=== PATIENT | male | born 1960 | race African-American/Black ===

== ENCOUNTER 2017-05-13 13:18 | Emergency (ER) | payer MEDICARE, MEDICAID ==
[2017-05-13] MEDS ORDERED: Flurbiprofen 0.03% OPTH.SOL* 2.5 ML BTL BOTH EYES ONE (13:58)
[2017-05-13 14:55] VITALS: BP 158/88
--- NOTE | 2017-05-13 16:13 | ED ---
Kaleigh Washington Thomas, scribed for Adam Prince MD on 05/13/17 at 1332 . Throat Pain/Nasal Congestion - HPI Summary HPI Summary: The pt is a 56 y/o M accompanied by and presenting to the ED c/o bilateral eye pain s/p contact with bleach fumes today at 08:00. The pain is not worse in one eye compared to the other. The pain is aggravated by opening his eyes. The pain is alleviated by nothing. The patient has treated the pain with nothing FOOT TENDER. Pt additionally c/o photophobia, inability to open his eyes secondary to the pain. He does not wear contact lenses. PMHx: DM, HLD. - History of Current Complaint Time Seen by Provider: 05/13/17 13:26 Hx Obtained From: Patient, Family/Loan Consultant - in room Onset/Duration: Sudden Onset, Lasting Hours - today at 08:00, Worse Since - worse over course of morning Severity: Severe Associated Signs And Symptoms: Positive: Negative Cough: None - Allergies/Home Medications Allergies/Adverse Reactions: Allergies Allergy/AdvReac Type Severity Reaction Status Date / Time No Known Allergies Allergy Verified 02/29/16 11:48 PMH/Surg Hx/FS Hx/Imm Hx Previously Healthy: No Endocrine/Hematology History: Reports: Hx Diabetes Cardiovascular History: Reports: Hx Hypercholesterolemia Denies: Hx Angina, Hx Coronary Artery Disease, Hx Hypertension, Hx Myocardial Infarction, Hx Valvular Heart Disease Respiratory History: Denies: Hx Asthma, Hx Chronic Obstructive Pulmonary Disease (COPD) - Surgical History Surgery Procedure, Year, and Place: HERNIA REPAIR - Family History Known Family History: Positive: Cardiac Disease - Social History Alcohol Use: Occasionally Substance Use Type: Reports: None Hx Tobacco Use: Yes Smoking Status (MU): Light Every Day Tobacco Smoker Review of Systems Positive: Photophobia, Other - POS: bilateral eye pain s/p bleach fume exposure , inability to open eyes secondary to the pain Negative: Other - NEG: respiratory distress All Other Systems Reviewed And Are Negative: Yes Physical Exam Triage Information Reviewed: Yes Vital Signs On Initial Exam: Initial Vitals Temp Pulse Resp BP Pulse Ox 98.9 F 85 22 177/103 99 05/13/17 13:58 05/13/17 13:58 05/13/17 13:58 05/13/17 13:58 08/04/17 13:58 Vital Signs Reviewed: Yes Appearance: Positive: Well-Appearing, No Pain Distress Skin: Positive: Warm, Skin Color Reflects Adequate Perfusion, Dry Head/Face: Positive: Normal Head/Face Inspection Eyes: Positive: Other: - There is chemosis in both eyes. There is no fluorescein pickup. Corneas are clear. ENT: Positive: Normal ENT inspection Neck: Positive: Supple, Nontender Respiratory/Lung Sounds: Positive: Clear to Auscultation, Breath Sounds Present Cardiovascular: Positive: RRR Abdomen Description: Positive: Nontender, Soft Bowel Sounds: Positive: Present Musculoskeletal: Positive: Normal, Strength/ROM Intact Neurological: Positive: Normal Psychiatric: Positive: Normal, Affect/Mood Appropriate Diagnostics - Vital Signs Vital Signs Temp Pulse Resp BP Pulse Ox 05/13/17 14:53 98.7 F 80 20 158/88 05/13/17 13:58 98.9 F 85 22 177/103 99 - Laboratory Lab Statement: Any lab studies that have been ordered have been reviewed, and results considered in the medical decision making process. EENT Course/Dx - Course Course Of Treatment: Mr. Jacob was irrigated at the eye wash station. He waas noted to have scleral injection and chemosis bilaterally without flouriscein worm picker. About a half an hour after irrigation his pH was between 7 and 8. - Diagnoses Provider Diagnoses: Chemical conjunctivitis, Chemosis of conjunctiva of both eyes Discharge - Discharge Plan Condition: Stable Disposition: HOME Prescriptions: Flurbiprofen 0.03% OPHTH.JORGE* 1 drop .SEE ORDER Q4HR #1 [email or web address] Patient Education Materials: [facility] (ED) Referrals: Chris Baker MD [Medical Doctor] - If Needed Additional Instructions: Follow up with Dr. Baker, utility bagger, if your eye has not improved by tomorrow. The documentation as recorded by the jaslola KaleighCecil accurately reflects the service I personally performed and the decisions made by me, Adam Prince MD.
== END 2017-05-13 14:53 | disposition home or self-care (01) ==
LOC: ED 13:18
DX: H10.213 Acute toxic conjunctivitis, bilateral (principal); H11.423 Conjunctival edema, bilateral; E11.9 Type 2 diabetes mellitus without complications; E78.00 Pure hypercholesterolemia, unspecified; F17.210 Nicotine dependence, cigarettes, uncomplicated
CPT/HCPCS: 99282; A9270-GY

== ENCOUNTER 2018-03-11 21:59 | Emergency (ER) | payer MEDICARE, MEDICAID ==
[2018-03-11] MEDS ORDERED: HYDROcodone/ACETAMIN 5-325 MG* 1 TAB PO ONE ×2 (22:54→23:48)
[2018-03-11] MEDS ORDERED: Cephalexin CAP* 500 MG PO ONE (23:53)
--- NOTE | 2018-03-11 23:53 | ED ---
Laceration/Wound HPI - HPI Summary HPI Summary: Complains of amputation of left fifth digit distal to DIP when he slammed car trunk on his finger 45 minutes ago. Patient brought in tip of his finger. Bleeding controlled - History of Current Complaint Stated Complaint: FINGER LAC Time Seen by Provider: 03/11/18 22:50 Hx Obtained From: Patient, Family/Filling Winder Pain Intensity: 7 - Allergy/Home Medications Allergies/Adverse Reactions: Allergies Allergy/AdvReac Type Severity Reaction Status Date / Time No Known Allergies Allergy Verified 03/11/18 22:06 PMH/Surg Hx/FS Hx/Imm Hx Endocrine/Hematology History: Reports: Hx Diabetes Cardiovascular History: Reports: Hx Hypercholesterolemia Denies: Hx Angina, Hx Coronary Artery Disease, Hx Hypertension, Hx Myocardial Infarction, Hx Valvular Heart Disease Respiratory History: Denies: Hx Asthma, Hx Chronic Obstructive Pulmonary Disease (COPD) Neurological History: Reports: Hx Dementia - Surgical History Surgery Procedure, Year, and Place: HERNIA REPAIR - Immunization History Date of Tetanus Vaccine: utd Date of Influenza Vaccine: spring 2017 Infectious Disease History: No Infectious Disease History: Denies: Traveled Outside the [place] in Last 30 Days - Family History Known Family History: Positive: Cardiac Disease - Social History Alcohol Use: Occasionally Substance Use Type: Reports: None Hx Tobacco Use: Yes Smoking Status (MU): Light Every Day Tobacco Smoker Review of Systems Constitutional: Negative Eyes: Negative ENT: Negative Cardiovascular: Negative Respiratory: Negative Gastrointestinal: Negative Genitourinary: Negative Musculoskeletal: Negative Skin: Negative Neurological: Negative Psychological: Normal All Other Systems Reviewed And Are Negative: Yes Physical Exam - Summary Physical Exam Summary: Worse with rotation of distal tip of left fifth digit distal to DIP, involving full nail. Minor bony protrusion from remainder of finger. Fifth Finger otherwise flexes and extends. Triage Information Reviewed: Yes Vital Signs On Initial Exam: Initial Vitals Temp Pulse Resp BP Pulse Ox 97.8 F 79 20 174/97 98 03/11/18 22:02 03/11/18 22:02 03/11/18 22:02 03/11/18 22:02 03/11/18 22:02 Vital Signs Reviewed: Yes Appearance: Positive: Well-Appearing Skin: Positive: Warm Head/Face: Positive: Normal Head/Face Inspection Eyes: Positive: Normal Neck: Positive: Supple Respiratory/Lung Sounds: Positive: Clear to Auscultation Cardiovascular: Positive: Normal Abdomen Description: Positive: Nontender Musculoskeletal: Positive: Normal Neurological: Positive: Normal Psychiatric: Positive: Normal AVPU Assessment: Alert - [place] Coma Scale Best Eye Response: 4 - Spontaneous Best Motor Response: 6 - Obeys Commands Best Verbal Response: 5 - Oriented Coma Scale Total: 15 Diagnostics - Vital Signs Vital Signs Temp Pulse Resp BP Pulse Ox 03/11/18 22:02 97.8 F 79 20 174/97 98 - Laboratory Lab Statement: Any lab studies that have been ordered have been reviewed, and results considered in the medical decision making process. - Radiology finger Xray Interpretation: Positive (See Comments) - Amputation of distal tip of distal phalanx of the left fifth digit Radiology Interpretation Completed By: ED Physician Laceration Repair Course/Dx - Course Course Of Treatment: Complains of amputation of left fifth digit distal to DIP when he slammed car trunk on his finger. Patient brought in tip of his finger. Discussed patient with Dr. Greer protection engineer for Ortho, who dressed patient's finger, and recommended Keflex by mouth, and follow-up in clinic Tuesday or Tuesday. Patient agreeable with plan. - Clinical Impression Provider Diagnoses: Fingertip amputation - Physician Notifications Discussed Care Of Patient With: Jagdeep Okeefe Discharge - Sign-Out/Discharge Documenting (check all that apply): Discharge/Admit/Transfer - Discharge Plan Condition: Stable Disposition: HOME Prescriptions: HYDROcodone/ACETAMIN 5-325 MG* [Tracy 5-325 TAB*] 1 tab PO Q6H PRN 4 Days #16 tab MDD 4-6 tabs PRN Reason: Pain Sulfamethox/Trimethoprim DS* [Bactrim DS 800/160 TAB*] 1 tab PO BID 10 Days #20 tab Patient Education Materials: Finger Amputation (ED) Referrals: Mary Mendez MD [Primary Care Provider] - Jagdeep Okeefe MD [Medical Doctor] - Additional Instructions: Keep wound clean and dry. Take antibiotics as directed. Follow-up with orthopedics Dr. Okeefe on Tuesday. Return to the ED for any new or worsening symptoms - Billing Disposition and Condition Condition: STABLE Disposition: HOME
[2018-03-11] MEDS ORDERED: Sulfamethox/Trimethoprim DS 800/160* TAB PO ONE (23:55)
[2018-03-12 00:59] VITALS: BP 188/99
--- NOTE | 2018-03-12 08:46 | RAD ---
Indication: Amputation of finger tip. Shut finger in trunk of car. Comparison: No relevant prior exams available on the [facility] PACS for comparison. Technique: AP, lateral, and oblique views LEFT fifth finger. REPORT AND IMPRESSION: Amputation of the tip of the fifth finger including the majority of the tuft of the distal phalanx. Overlying soft tissue contour abnormality with soft tissue gas and edema.
--- NOTE | 2018-03-12 09:11 | CONSULT ---
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 The pain is located at the left small finger and is constant moderate, sharp. Pain worse with hip ROM and lessened when rested. Review of Systems: Negative for fever, recent visual changes, difficulty swallowing, chest pain, shortness of breath, abdominal pain, hematuria, easy bruising, diffuse weakness or lack of coordination, and diffuse rash. 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 Smokes a few cigarettes per day FH: diabetes Physical Examination: Constitutional: Temp Pulse Resp BP Pulse Ox 97.9 F 66 18 188/99 99 03/12/18 00:15 03/12/18 00:15 03/12/18 00:15 03/12/18 00:15 03/12/18 00:15 General appearance is healthy and non-septic in no acute distress. Cardiovascular: Pulse examination demonstrates positive pedal pulses with brisk capillary refill. There are no varicosities. Lung sounds clear bilaterally. Heart with a regular rate and rhythm. Abdomen: Soft and nontender Lymphatic: No lymphadenopathy appreciated. Skin: Bilateral upper and lower extremity examination demonstrates no ulcerative lesions. Psychiatric / Neurological: Appropriate affect. Alert and oriented to person, place and time. There is no significant abnormality in coordination appreciated. Normoreflexive deep tendon reflex of the affected extremity. Musculoskeletal: Bilateral upper extremities and contralateral lower extremity show full range of motion with no evidence of instability and no tenderness with palpation and 5 /5 strength. There is no gross deformity. LUE: Left small finger tip avulsion with loss of distal tip and nail. No active bleeding. No obvious wound contamination. Distal phalanx exposed. Able to flex and extend fingers. No wrist pain with ROM No erythema Mild swelling of small finger SILT R/M/U palpable radial pulse Imaging: X-rays were obtained, and independently interpreted and show a distal phalanx distal fracture Impression and Plan: Left small finger fingertip avulsion amputation and distal phalanx fracture. The wound was thoroughly irrigated by me in the emergency room. I then dressed with Xeroform and a bulky dry sterile dressing. He will followup early this week with one of our hand specialists to schedule a revision amputation. He will be on antibiotics in the meantime. Concerning symptoms reviewed that should prompt a return to the emergency room prior to his evaluation with a hand specialist. He will remain nonweightbearing, rest, elevate the left upper extremity. All questions were answered. Jagdeep Okeefe MD
== END 2018-03-12 00:15 | disposition home or self-care (01) ==
LOC: ED 21:59
DX: S68.127A Partial traumatic metacarpophalangeal amputation of left little finger, initial encounter (principal); W23.0XXA Caught, crushed, jammed, or pinched between moving objects, initial encounter; Y92.9 Unspecified place or not applicable; F17.210 Nicotine dependence, cigarettes, uncomplicated
CPT/HCPCS: 73140; 99282; A9270-GY

== ENCOUNTER 2018-03-14 09:13 | Day surgery (SDC) | payer MEDICARE, MEDICAID ==
--- NOTE | 2018-03-13 14:19 | HP ---
PREOPERATIVE HISTORY AND PHYSICAL EXAM: DATE OF SURGERY/ADMISSION: 03/14/18 [facility] ATTENDING SURGEON: Deepthi Dick MD * (DICTATED BY ERICK MAYERS) PROCEDURE: Left small finger revision amputation. CHIEF COMPLAINT: Partial amputation, left small finger. HISTORY OF PRESENT ILLNESS: This is a 57-year-old male who sustained injury to his left pinky finger on 03/11/18, when he accidentally slammed the finger in a car trunk. He suffered a partial amputation at the level of the fingernail. He was seen at the emergency room and Dr. Okeefe did a consult. He has been referred to Dr. Dick for followup evaluation and treatment considerations after exam. Dr. Dick is recommending surgical intervention in the form of a left small finger revision amputation and the patient has consented to proceed. He is on oxycodone regularly for chronic back pain and for his left pinky he was prescribed Bactrim and Keflex. PAST MEDICAL HISTORY: 1. Arthritis. 2. Diabetes. 3. Fibromyalgia/neuropathy. 4. Chronic back pain. 5. Hypertension. 6. GERD. PAST SURGICAL HISTORY: 1. Right hip resurfacing in 2009. 2. Hernia repair. CURRENT MEDICATIONS: 1. Gabapentin 300 mg 4 tablets t.i.d. 2. Glipizide 10 mg daily. 3. Humulin R 100 units/mL 15-25 units t.i.d. 4. Ibuprofen 600 mg 3 times a day p.r.n. 5. Levemir FlexTouch 100 units/mL 35 units once daily. 6. Omeprazole 20 mg twice daily. 7. Oxycodone HCl 10 mg 2 tabs t.i.d. p.r.n. 8. Oxycodone HCl 5 mg 1 tab t.i.d. p.r.n. 9. The patient is also on a blood pressure medication, but he could not remember the name of it. ALLERGIES: No known drug allergies. FAMILY MEDICAL HISTORY: Diabetes, heart disease, rheumatoid arthritis. SOCIAL HISTORY: The patient is disabled. He is a current smoker, he smokes about 5 cigarettes per day and has done so for 40 years. He denies recreational drug use. He does drink alcohol on occasion. REVIEW OF SYSTEMS: General: Negative for fevers, chills, unexplained weight loss or gain. No known anesthesia problems. HEENT: Negative for headache, lightheadedness, syncopal episodes, visual changes. Integumentary: Negative for abrasions, rashes. Cardiothoracic: Negative for hypertension, chest pain, palpitations, or edema. Respiratory: Negative for shortness of breath with exertion, chronic cough, or wheezing. GI: Positive for GERD. Negative for nausea, vomiting, diarrhea, or constipation. : Negative for nocturia, urinary frequency, urgency, history of UTIs, or kidney problems. Musculoskeletal: Positive for current complaint. Positive for chronic back pain. Neurological: Negative for paresthesias, numbness, history of seizure, stroke, or poor balance. Endocrine: Positive for diabetes. Negative for thyroid issues. Hematologic: Negative for easy bruising, anemia, bleeding disorders, or history of DVT. Infectious Disease: Negative for history of MRSA , hepatitis C, or HIV. PHYSICAL EXAMINATION GENERAL: Well-developed, well-nourished 57-year-old male in no acute distress. VITAL SIGNS: Height 5 feet 7 inches, weight 239 pounds. Pulse rate 80, blood pressure 128/82. HEENT: Normocephalic, atraumatic. Pupils are equal, round, and reactive to light and accommodation. Extraocular movements are intact. NECK: Supple. No palpable lymph nodes. Throat is clear. PULMONARY: Lungs are clear to auscultation bilaterally. No wheezes, rales, or rhonchi. CARDIOVASCULAR: Regular rate and rhythm. S1 and S2. No murmurs, rubs, or gallops. No edema. ABDOMEN: Positive bowel sounds. Soft, nontender. NEUROLOGIC: Alert and oriented x3. Cranial nerves II through XII are intact. Sensation is intact to light touch. MUSCULOSKELETAL: On exam of his left pinky finger, he has a partial amputation of the small finger at the level of the fingernail. It is completely open and clean. There is no sign of infection, no drainage or erythema. He has active flexion and extension at the DIP joint. IMAGING STUDIES: X-rays of the left little finger show an amputation of the tip of the finger including the majority of the tuft of the distal phalanx. IMPRESSION: Partial amputation, left small finger. PLAN: The patient is scheduled to undergo a left small finger revision amputation with Dr. Dick on 03/14/18. He will return to the office 10 days postop for followup and suture removal. He has pain medications as prescribed by his primary care doctor that he will plan on using for postoperative pain management. ERICK MAYERS [id number]/[facility] #: [id number] RUI
[~2018-03-14 09:13] MED LIST: Buffered Lidocaine 0.9% SYRIN* 5 ML/SYR SYRINGE INTRADERM ONE; Lidocaine 1% INJ* 10 MG/ML 30 ML SDV ONE
[2018-03-14] MEDS ORDERED: Famotidine IV* 10 MG/ML 2 ML (20 mg) ONE (09:23)
[2018-03-14] MEDS ORDERED: Insulin REGULAR(*) 1 UNITS UNIT SUBCUT ONE (09:52)
[2018-03-14] MEDS ORDERED: Insulin LISPRO* 1 UNITS UNIT SUBCUT ONE (09:54)
[2018-03-14] MEDS: Famotidine IV* 10 MG/ML 2 ML (20 mg) IV ONE ×2 (10:01→10:28)
[2018-03-14] MEDS ORDERED: fentaNYL* 50 MCG/ML 2 ML VIAL (100 MCG VIAL) ONE (10:11)
[2018-03-14] MEDS ORDERED: Midazolam* 1 MG/ML 5 ML VIAL (5 MG) ONE (10:11)
[2018-03-14] MEDS ORDERED: oxyCODONE TAB* 5 MG TAB PO PRN (10:56)
[2018-03-14] MEDS ORDERED: Acetaminophen TAB* 325 MG PO PRN (10:56)
[2018-03-14] MEDS ORDERED: DiMENhydriNATE IV* 50 MG/ML VIAL IV PUSH PRN (10:56)
[2018-03-14] MEDS ORDERED: Naloxone* 0.4 MG/ML 1 ML VIAL IV PRN (10:56)
[2018-03-14] MEDS ORDERED: Ketorolac INJ* 30 MG/ML 1 ML VIAL ONE (11:05)
[2018-03-14] MEDS ORDERED: Ondansetron INJ* 2 MG/ML VIAL ONE ×2 (11:05)
[2018-03-14] MEDS ORDERED: Propofol* 10 MG/ML 20 ML BTL IV PUSH ONE (11:05)
[2018-03-14 11:56] VITALS: BP 138/75
--- NOTE | 2018-03-14 22:43 | OP ---
DATE OF OPERATION: 03/14/18 [facility] DATE OF : 60 SURGEON: Deepthi Dick MD TECHNICAL SALES SUPPORT SPECIALIST: ERICK Garcia ANESTHESIA: Local MAC. PRE-OP DIAGNOSIS: Partial amputation of the left small finger. POST-OP DIAGNOSIS: Partial amputation of the left small finger. OPERATIVE PROCEDURE: Revision amputation of the left small finger with a V-Y advancement flap. ESTIMATED BLOOD LOSS: Zero. TOURNIQUET TIME: About 20 minutes. INDICATIONS FOR PROCEDURE: Juan is a 57-year-old male who injured his left small finger when he closed it in a trunk door of his car. He has a partially amputation of the tip of the finger. He presents for revision amputation. There is exposed bone. DESCRIPTION OF PROCEDURE: The patient was brought to the operating room, was given a sedation anesthetic and a digital block with 10 cc of 1% plain lidocaine. The skin of his left hand and forearm was prepped and draped in the usual sterile fashion. The hand and forearm were exsanguinated and the tourniquet elevated to 250 mmHg. The wound was cleaned and then the exposed bone was debrided just slightly. There was a significant amount of nail bed remaining, so this was preserved. A V-shaped incision was made on the palmar aspect of the finger and the skin was rearranged to completely cover the wound and closed in Y-shaped fashion. The skin flap was sutured with 4-0 nylon suture. The wound was dressed with Xeroform, 4x4, Webril, and Coban. The patient tolerated the procedure well, was brought to the recovery room in good condition. [id number]/[facility] #: [id number] [facility]
== END 2018-03-14 12:10 | disposition home or self-care (01) ==
LOC: OREAST 09:13
PROVIDERS: ATTEND Orthopaedic Surgery
DX: S61.317A Laceration without foreign body of left little finger with damage to nail, initial encounter (principal); E11.9 Type 2 diabetes mellitus without complications; Z79.4 Long term (current) use of insulin; I10 Essential (primary) hypertension; K21.9 Gastro-esophageal reflux disease without esophagitis; M19.90 Unspecified osteoarthritis, unspecified site; M79.7 Fibromyalgia; F17.210 Nicotine dependence, cigarettes, uncomplicated; E78.5 Hyperlipidemia, unspecified; W23.0XXA Caught, crushed, jammed, or pinched between moving objects, initial encounter; Y92.9 Unspecified place or not applicable
CPT/HCPCS: J1885; J2250; J2405; J2704; J3010

== ENCOUNTER 2018-09-13 21:33 | Emergency (ER) | payer MEDICARE, MEDICAID ==
[2018-09-13] MEDS ORDERED: NS 0.9% 1000 ML* 1,000 ML IV ONE ×2 (21:59→22:44)
[2018-09-13] MEDS ORDERED: Labetalol IV* 5 MG/ML 20 ML VIAL IV PUSH ONE (22:00)
--- NOTE | 2018-09-13 22:00 | ED ---
Substance Abuse/Use - HPI Summary HPI Summary: This patient is a 57 year old M brought in by ambulance to [facility] with a chief complaint of unresponsiveness that occurred prior to arrival and resolved with one dose of Narcan. The patient rates the pain 0/10 in severity. Symptoms aggravated by nothing. Symptoms alleviated by Narcan. Patient was found unresponsive on scene, patient admits to snorting heroin today. Patient says he does not do heroin, but took it tonight as an experiment. - History Of Current Complaint Chief Complaint: EDOverdose Stated Complaint: OVERDOSE Time Seen by Provider: 09/13/18 21:50 Hx Obtained From: Patient Ingestion History: Type/Name Of Drug - Heroin Overdose Characteristics: Inhalation Timing Of Abuse: Binge Use Severity Initially: Mild Severity Currently: Mild Aggravating Factor(s): Nothing Alleviating Factor(s): Other - Narcan - Allergies/Home Medications Allergies/Adverse Reactions: Allergies Allergy/AdvReac Type Severity Reaction Status Date / Time No Known Allergies Allergy Verified 03/14/18 09:40 PMH/Surg Hx/FS Hx/Imm Hx Previously Healthy: No Endocrine/Hematology History: Reports: Hx Diabetes - USES INSULIN AND ORAL MEDICATION FOR Cardiovascular History: Reports: Hx Hypercholesterolemia, Hx Hypertension - ON MEDICATION FOR Denies: Hx Angina, Hx Coronary Artery Disease, Hx Myocardial Infarction, Hx Pacemaker/ICD, Hx Valvular Heart Disease Respiratory History: Denies: Hx Asthma, Hx Chronic Obstructive Pulmonary Disease (COPD) GI History: Reports: Hx Gastroesophageal Reflux Disease - ON MEDICATION FOR Musculoskeletal History: Reports: Hx Arthritis - "ALL OVER" Sensory History: Reports: Hx Contacts or Glasses - GLASSES Denies: Hx Hearing Aid Opthamlomology History: Reports: Hx Contacts or Glasses - GLASSES Neurological History: Reports: Hx Dementia - Surgical History Surgery Procedure, Year, and Place: HERNIA REPAIR. RIGHT TOTAL REPLACEMENT-7 YEARS AGO. finger Hx Anesthesia Reactions: No - Immunization History Date of Tetanus Vaccine: utd Date of Influenza Vaccine: spring 2017 Infectious Disease History: No Infectious Disease History: Denies: Traveled Outside the [place] in Last 30 Days - Family History Known Family History: Positive: Cardiac Disease - Social History Occupation: Disabled Lives: With Family Alcohol Use: Rare Hx Substance Use: Yes Substance Use Type: Reports: Heroin Hx Tobacco Use: Yes Smoking Status (MU): Current Every Day Smoker Amount Used/How Often: UP TO 6 CIGARETTES PER DAY-X 30 YEARS Have You Smoked in the Last Year: Yes Review of Systems Negative: Fever Neurological: Other - Positive unresponsiveness All Other Systems Reviewed And Are Negative: Yes Physical Exam - Summary Physical Exam Summary: VITAL SIGNS: Reviewed. GENERAL: Patient is a well-developed and nourished male who is lying comfortable in the stretcher. Patient is not in any acute respiratory distress. HEAD AND FACE: No signs of trauma. No ecchymosis, hematomas or skull depressions. No sinus tenderness. EYES: PERRLA, EOMI x 2, No injected conjunctiva, no nystagmus. EARS: Hearing grossly intact. Ear canals and tympanic membranes are within normal limits. MOUTH: Oropharynx within normal limits. NECK: Supple, trachea is midline, no adenopathy, no JVD, no carotid bruit, no c- spine tenderness, neck with full ROM. CHEST: Symmetric, no tenderness at palpation LUNGS: Clear to auscultation bilaterally. No wheezing or crackles. CVS: Regular rate and rhythm, S1 and S2 present, no murmurs or gallops appreciated. ABDOMEN: Soft, non-tender. No signs of distention. No rebound no guarding, and no masses palpated. Bowel sounds are normal. EXTREMITIES: FROM in all major joints, no edema, no cyanosis or clubbing. NEURO: Alert and oriented x 3. No acute neurological deficits. Speech is normal and follows commands. SKIN: Dry and warm PSYCH: Somewhat anxious Triage Information Reviewed: Yes Vital Signs On Initial Exam: Initial Vitals Temp Pulse Resp BP Pulse Ox 98.6 F 100 20 192/102 98 09/13/18 21:39 09/13/18 21:39 09/13/18 21:39 09/13/18 21:39 09/13/18 21:39 Vital Signs Reviewed: Yes Diagnostics - Vital Signs Vital Signs Temp Pulse Resp BP Pulse Ox 09/13/18 21:39 98.6 F 100 20 192/102 98 - Laboratory Result Diagrams: 09/13/18 22:06 09/13/18 22:06 Lab Statement: Any lab studies that have been ordered have been reviewed, and results considered in the medical decision making process. - Radiology Chest XR Radiology Interpretation Completed By: ED Physician Summary of Radiographic Findings: Chest XR reveals, per ED physician, no acute process. - EKG 2147 Cardiac Rate: NL EKG Rhythm: Sinus Rhythm - [address] Segment: Non-Specific Summary of EKG Findings: An EKG taken at 2146 reveals sinus rhythm at 90 BPM with 1st degree AV block, normal axis, and nonspecific T wave changes. Course/Dx - Course Course Of Treatment: This patient is a 57 year old M brought in by ambulance to [facility] with a chief complaint of unresponsiveness that occurred prior to arrival and resolved with one dose of Narcan. Patient was found unresponsive on scene, patient admits to snorting heroin today. Patient says he does not do heroin, but took it tonight as an experiment. Physical Exam Findings: Somewhat anxious. Patient had a nasal airway, which I did remove. An EKG taken at 2146 reveals sinus rhythm at 90 BPM with 1st degree AV block, normal axis, and nonspecific T wave changes. Bloodwork and UA obtained. Patient did have elevated lactic acid, which improved with hydration. Blood sugar is down. In the ED course the patient was given Insulin, fluids, Ativan, and Trandate. Patient will be discharged with follow up from PCP. The patient is agreeable with this plan. - Diagnoses Provider Diagnoses: Substance abuse, Hyperglycemia Discharge - Sign-Out/Discharge Documenting (check all that apply): Patient Departure - Discharge home - Discharge Plan Condition: Stable Disposition: HOME Patient Education Materials: Diabetic Hyperglycemia (ED) Referrals: Mary Mendez MD [Primary Care Provider] - 2 Days Additional Instructions: RETURN TO THE EMERGENCY DEPARTMENT FOR NEW OR WORSENING SYMPTOMS - Billing Disposition and Condition Condition: STABLE Disposition: Home - Attestation Statements Document Initiated by Scribe: Yes Documenting Scribe: Remedios Daniel Provider For Whom Camelia is Documenting (Include Credential): Dr. Concepcion Riggs MD Scribe Attestation: IRemedios, scribed for Dr. Concepcion Riggs MD on 09/14/18 at 0641. Scribe Documentation Reviewed: Yes Provider Attestation: The documentation as recorded by the Remedios del valle accurately reflects the service I personally performed and the decisions made by me, Dr. Concepcion Riggs MD Status of Scribe Document: Viewed
[2018-09-13] MEDS ORDERED: LORazepam INJ* 2 MG/ML 1 ML VIAL IV PUSH ONE (22:01)
[2018-09-13] MEDS ORDERED: Insulin REGULAR(*) 1 UNITS UNIT IV PUSH ONE (22:03)
[2018-09-13 22:23] LABS: ABS Basophils 0 10^3/ul (0-0.2); ABS Eosinophils 0.2 10^3/ul (0-0.6); ABS Lymphocytes 1.2 10^3/ul (1.0-4.8); ABS Monocytes 0.8 10^3/ul (0-0.8); ABS Neutrophils 8.5 10^3/ul (1.5-7.7); ABS Nucleated RBC 0 10^3/ul; Eosinophil % 1.6 %; Hematocrit 41 % (42-52); Hemoglobin 13.7 g/dl (14.0-18.0); Lymphocyte % 10.8 %; Mean Corpuscular HGB Conc 34 g/dl (31-36); Mean Corpuscular Hemoglobin 27 pg (27-31); Mean Corpuscular Volume 80 fL (80-94); Mean Platelet Volume 8.1 fL (7.4-10.4); Nucleated Red Blood Cells % 0; Platelet Count 210 10^3/ul (150-450); Red Blood Count 5.12 10^6/ul (4.00-5.40); Red Cell Distribution Width 15 % (10.5-15); White Blood Count 10.6 10^3/ul (3.5-10.8)
[2018-09-13 22:31] LABS: INR 0.77 (0.77-1.02)
[2018-09-13 22:41] LABS: EGFR Non-African American 61.8 (>60)
[2018-09-14 03:12] LABS: Urine Appearance Clear; Urine Blood 1+ (Negative); Urine Color Yellow; Urine Ketones Negative (Negative); Urine Protein 2+(100 mg/dL) (Negative); Urine Red Blood Cell 2+(6-10/hpf) (Absent); Urine Specific Gravity 1.022 (1.010-1.030); Urine Urobilinogen Negative (Negative); Urine White Blood Cell Trace(0-5/hpf) (Absent)
[2018-09-14] MEDS ORDERED: Insulin LISPRO* 1 UNITS UNIT SUBCUT ONE (03:52)
[2018-09-14] MEDS ORDERED: Insulin REGULAR(*) 1 UNITS UNIT IV PUSH ONE (03:53)
[2018-09-14 04:46] VITALS: BP 149/87
== END 2018-09-14 04:45 | disposition home or self-care (01) ==
LOC: ED 21:33
DX: F19.10 Other psychoactive substance abuse, uncomplicated (principal); E13.65 Other specified diabetes mellitus with hyperglycemia; Z79.4 Long term (current) use of insulin; F17.210 Nicotine dependence, cigarettes, uncomplicated
CPT/HCPCS: 36415; 71045; 80053; 80307; 81003; 81015; 82550; 82803; 83605; 83735; 84484; 85025; 85610; 85730; 87086; 93005; 96361; 96372; 96374; 96375; 99285; J2060

== ENCOUNTER → 2018-12-24 14:36 | Emergency (ER) | payer MEDICARE, MEDICAID ==
[~2018-12-24 14:36] MED LIST changes: +Acetaminophen TAB* 325 MG PO ONE; +Albuterol/Ipratropium NEB.SOL* Albuterol 2.5 MG/Ipratropium 0.5 MG 3 ML INH ONE; -Buffered Lidocaine 0.9% SYRIN* 5 ML/SYR SYRINGE INTRADERM ONE; +Furosemide IV* 10 MG/ML 2 ML VIAL (20 MG) IV ONE; -Lidocaine 1% INJ* 10 MG/ML 30 ML SDV ONE; +NS 0.9% 1000 ML** 1,000 ML IV ONE; +hydrALAZINE IV* 20 MG/ML VIAL IV SLOW PU ONE; +methylPREDNISolone 125 MG* 2 ML VIAL IV ONE
--- NOTE | 2018-12-24 14:50 | ED ---
Shortness of Breath - HPI Summary HPI Summary: Patient is a 58-year-old male presenting to the ED with a three-day worsening history of SOB. He denies history of COPD or asthma. He takes no medications at home. He has been prescribed an albuterol inhaler in the past when he has had some SOB, however he has not used this at home. He arrives by EMS. He denies recent illness or sick contacts. He denies any fevers, sweats, chills. He endorses a cough with sputum production. - History of Current Complaint Time Seen by Provider: 12/24/18 14:38 Hx Obtained From: Patient Onset/Duration: Sudden Onset Timing: Constant Current Severity: None Dyspnea At: Rest Alleviating Factors: Bronchodilators Associated Signs & Symptoms: Cough (Productive) - Risk Factors Pulmonary Embolism: Negative Cardiac: Negative Pseudomonas: Negative Tuberculosis: Negative - Allergy/Home Medications Allergies/Adverse Reactions: Allergies Allergy/AdvReac Type Severity Reaction Status Date / Time No Known Allergies Allergy Verified 12/24/18 14:55 Home Medications: Home Medications Gabapentin 600 mg PO TID 12/24/18 [History Confirmed 12/24/18] Pioglitazone TAB* [Actos TAB*] 30 mg PO DAILY 12/24/18 [History Confirmed ] PMH/Surg Hx/FS Hx/Imm Hx Previously Healthy: Yes Endocrine/Hematology History: Reports: Hx Diabetes - USES INSULIN AND ORAL MEDICATION FOR Cardiovascular History: Reports: Hx Hypercholesterolemia, Hx Hypertension - ON MEDICATION FOR Denies: Hx Angina, Hx Coronary Artery Disease, Hx Myocardial Infarction, Hx Pacemaker/ICD, Hx Valvular Heart Disease Respiratory History: Denies: Hx Asthma, Hx Chronic Obstructive Pulmonary Disease (COPD) GI History: Reports: Hx Gastroesophageal Reflux Disease - ON MEDICATION FOR Musculoskeletal History: Reports: Hx Arthritis - "ALL OVER" Sensory History: Reports: Hx Contacts or Glasses - GLASSES Denies: Hx Hearing Aid Opthamlomology History: Reports: Hx Contacts or Glasses - GLASSES Neurological History: Reports: Hx Dementia - Surgical History Surgery Procedure, Year, and Place: HERNIA REPAIR. RIGHT TOTAL REPLACEMENT-7 YEARS AGO. finger Hx Anesthesia Reactions: No - Immunization History Date of Tetanus Vaccine: utd Date of Influenza Vaccine: spring 2017 Hx Pertussis Vaccination: No Immunizations Up to Date: Yes Infectious Disease History: Denies: Traveled Outside the [place] in Last 30 Days - Family History Known Family History: Positive: Cardiac Disease - Social History Occupation: Unemployed Lives: With Family Alcohol Use: Rare Hx Substance Use: Yes Substance Use Type: Reports: Heroin Hx Tobacco Use: Yes Smoking Status (MU): Current Every Day Smoker Amount Used/How Often: UP TO 6 CIGARETTES PER DAY-X 30 YEARS Have You Smoked in the Last Year: Yes Review of Systems Constitutional: Negative Negative: Fever, Chills, Fatigue, Skin Diaphoresis Negative: Dental Pain Negative: Palpitations, Chest Pain Positive: Shortness Of Breath, Cough Negative: Abdominal Pain, Vomiting, Diarrhea, Nausea Negative: Rash, Bruising Neurological: Negative All Other Systems Reviewed And Are Negative: Yes Physical Exam Triage Information Reviewed: Yes Vital Signs Reviewed: Yes Appearance: Positive: Well-Appearing, Well-Nourished Skin: Positive: Warm, Skin Color Reflects Adequate Perfusion Head/Face: Positive: Normal Head/Face Inspection Eyes: Positive: EOMI, TIFFANI, Conjunctiva Clear Neck: Positive: Supple, No Lymphadenopathy Respiratory/Lung Sounds: Positive: Decreased Breath Sounds Cardiovascular: Positive: RRR, Pulses are Symmetrical in both Upper and Lower Extremities, Tachycardia, Leg Edema Left - 1+, Leg Edema Right - 1+ Musculoskeletal: Positive: Normal, Strength/ROM Intact Neurological: Positive: Speech Normal Psychiatric: Positive: Normal, Affect/Mood Appropriate AVPU Assessment: Alert Diagnostics - Laboratory Result Diagrams: 12/24/18 15:00 12/24/18 15:00 Lab Statement: Any lab studies that have been ordered have been reviewed, and results considered in the medical decision making process. Course/Dx - Course Course Of Treatment: On arrival into the ED, patient is noted to be 100% on a nonrebreather. This was taken off and he remains at 98%. He is given hydralazine 5 mg IV for his high blood pressure noted to be 205/100. Methylprednisolone 125, 1 DuoNeb, Tylenol 650 mg and normal saline also given on arrival. He is feeling improved and his BP decreases to 149/73. He ambulates well to the restroom. BNP returns at 160 so we held the rest of any fluids ordered. On physical examination, patient has bilateral crackles without rales or wheezing. He continues to have bilateral crackles and Lasix is given. This improved his sxs. 1+ pitting edema noted. Glucose is 257 he continues his DM medications. Trop 0.02. He is given RX 3 days Lasix and albuterol inhaler. He is given prednisone for SOB. I believe he may have COPD with overlying mild CHF. He will have a close f/u with his PCP this week for further evaluation/resolution of these diagnoses. Patient is stable and OK for discharge. All questions answered appropriately. - Diagnoses Differential Diagnosis/HQI/PQRI: Positive: Bronchitis, CHF, Pulmonary Edema Provider Diagnoses: COPD (chronic obstructive pulmonary disease), Pulmonary edema - Critical Care Time Critical Care Time: 30-74 min Discharge - Sign-Out/Discharge Documenting (check all that apply): Patient Departure Patient Received Moderate/Deep Sedation with Procedure: No - Discharge Plan Condition: Stable Disposition: HOME Prescriptions: Albuterol HFA INHALER* [Ventolin HFA Inhaler*] 1 puff INH Q4H PRN #1 mdi PRN Reason: Shortness Of Breath Furosemide TAB* [Lasix TAB*] 20 mg PO DAILY #3 tab predniSONE TAB* [Deltasone TAB*] 50 mg PO DAILY #5 tab MDD 1 Patient Education Materials: Pulmonary Edema (ED) Referrals: Mary Mendez MD [Primary Care Provider] - Additional Instructions: Please follow up with your PCP in 2-3 days Prednisone once daily x 5 days - Billing Disposition and Condition Condition: STABLE Disposition: Home
[2018-12-24 15:08] LABS: ABS Basophils 0.1 10^3/ul (0-0.2); ABS Eosinophils 0.3 10^3/ul (0-0.6); ABS Lymphocytes 1.6 10^3/ul (1.0-4.8); ABS Monocytes 0.5 10^3/ul (0-0.8); ABS Neutrophils 3.8 10^3/ul (1.5-7.7); ABS Nucleated RBC 0 10^3/ul; Eosinophil % 4.4 %; Hematocrit 40 % (36-46); Hemoglobin 13.2 g/dL (14.0-18.0); Lymphocyte % 24.9 %; Mean Corpuscular HGB Conc 33 g/dL (31-36); Mean Corpuscular Hemoglobin 26 pg (27-31); Mean Corpuscular Volume 80 fL (80-94); Mean Platelet Volume 7.7 fL (7.4-10.4); Nucleated Red Blood Cells % 0; Platelet Count 220 10^3/uL (150-450); Red Cell Distribution Width 15 % (10.5-15); White Blood Count 6.2 10^3/uL (3.5-10.8)
[2018-12-24 15:26] LABS: Albumin 3.3 g/dL (3.2-5.2); Albumin/Globulin Ratio 1.1 (1-3); BUN/Creatinine Ratio 11.1 (8-20); C Reactive Protein 12.63 mg/L (<8.01); Calcium 8.1 mg/dL (8.6-10.3); EGFR Non-African American 70.2 (>60); Globulin 2.9 g/dL (2-4); Total Bilirubin 0.6 mg/dL (0.2-1.0); Total Protein 6.2 g/dL (6.4-8.9)
[2018-12-24 15:27] LABS: Troponin I 0.02 ng/mL (<0.04)
[2018-12-24 15:43] LABS: Potassium 4.1 mmol/L (3.5-5.0)
[2018-12-24 18:12] LABS: Influenza A Molecular NEGATIVE (Negative); Influenza B Molecular NEGATIVE (Negative)
[2018-12-24 19:21] VITALS: BP 180/87
== END | disposition home or self-care (01) ==
LOC: ED 14:36
DX: J44.9 Chronic obstructive pulmonary disease, unspecified (principal); J81.1 Chronic pulmonary edema; R05 Cough; I10 Essential (primary) hypertension; R06.02 Shortness of breath; E11.9 Type 2 diabetes mellitus without complications; Z79.84 Long term (current) use of oral hypoglycemic drugs; Z79.4 Long term (current) use of insulin; F17.210 Nicotine dependence, cigarettes, uncomplicated
CPT/HCPCS: 36415; 71046; 80053; 83605; 83880; 84484; 85025; 86140; 93005; 96374; 96375; 99284; A9270-GY; J0360; J1940; J2930

== ENCOUNTER → 2019-05-03 10:03 | Day surgery (SDC) | payer MEDICARE, MEDICAID ==
[~2019-05-03 10:03] MED LIST changes: -Acetaminophen TAB* 325 MG PO ONE; -Albuterol/Ipratropium NEB.SOL* Albuterol 2.5 MG/Ipratropium 0.5 MG 3 ML INH ONE; +Buffered Lidocaine 1% SYRIN* 1 ML/SYRINGE INTRADERM ONE; +Famotidine IV* 10 MG/ML 2 ML (20 mg) IV ONE; +Famotidine IV* 10 MG/ML 2 ML (20 mg) ONE; -Furosemide IV* 10 MG/ML 2 ML VIAL (20 MG) IV ONE; +KETAMINE HCL* 50 MG/ML 10 ML VIAL ONE; +Lactated Ringers 1000 ML Bag* 1,000 ML IV SCH; +Lidocaine 2% PF * 5 ML VIAL ONE; +Midazolam* 1 MG/ML 10 ML VIAL (10 MG) ONE; -NS 0.9% 1000 ML** 1,000 ML IV ONE; +Naloxone* 0.4 MG/ML 1 ML VIAL IV PRN; +Ondansetron INJ* 2 MG/ML VIAL IV PRN; +Ondansetron INJ* 2 MG/ML VIAL ONE; +Propofol* 10 MG/ML 20 ML BTL ONE; +fentaNYL* 50 MCG/ML 2 ML VIAL (100 MCG VIAL) IV PRN; +fentaNYL* 50 MCG/ML 2 ML VIAL (100 MCG VIAL) ONE; -hydrALAZINE IV* 20 MG/ML VIAL IV SLOW PU ONE; +hydrALAZINE IV* 20 MG/ML VIAL ONE; -methylPREDNISolone 125 MG* 2 ML VIAL IV ONE
[2019-05-03 14:32] VITALS: BP 170/98
--- NOTE | 2019-05-03 21:32 | PRO ---
CC: Mary Mendez MD * DATE OF PROCEDURE: 05/03/19 [facility] PRIMARY CARE PHYSICIAN: Mary Mendez MD INDICATION FOR PROCEDURE: GERD and positive Cologuard. PROCEDURE PERFORMED: Complete esophagogastroduodenoscopy with biopsies and complete colonoscopy to the cecum with cold snare polypectomy and biopsy polypectomy. MEDICATIONS GIVEN: Please see anesthesia record. DESCRIPTION OF PROCEDURE: After the EGD and colonoscopy procedure including the risks, benefits, and alternatives with the risks not limited to perforation , surgery, missed lesions, and/or were explained to the patient, written informed consent was obtained, IV medication was given by the anesthesia service , and a bite block was placed between the teeth. The adult Olympus gastroscope was then inserted into the patient's oropharynx, into the tubular esophagus. 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 This was biopsied. Scope was then advanced through the lower esophageal sphincter into the stomach. The antegrade views were normal. Biopsies were taken in the antrum for LATISHA testing given the patient's symptomatology. On retroflexion, a small sliding hiatal hernia was appreciated. The scope was then advanced through a widely patent pylorus into the duodenal bulb, C loop, distal duodenum. These were normal in appearance. The scope was then removed from the patient. He tolerated the procedure well. He was then rotated, given additional IV sedation medication. A rectal exam was then performed. The rectal exam was unremarkable. The adult Olympus colonoscope was then inserted into the patient's rectum and advanced very carefully through the entirety of the colon into the cecal base. Cecal base was carefully inspected and normal in appearance. The preparation was fair with quite a bit of seeds occluding the scope. However, with vigorous washing, I was able to get good views. The terminal ileal valve was identified and normal in appearance. Over the next 10 minutes, the scope was carefully withdrawn inspecting the mucosa. In the cecum, a 1-cm polyp was removed with cold snare polypectomy in the entirety. On further withdrawal, in the transverse colon, 2 polyps removed with biopsy polypectomy in the entirety. There was moderate pandiverticulosis coli; however, the left side had the predominance of this. On return to the rectum, direct views were normal. On retroflexion, the views were normal as well. The scope was then removed from the patient. He tolerated the procedure well. He returned to the recovery room in stable condition. IMPRESSION: 1. Complete esophagogastroduodenoscopy with biopsies. 2. 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 3. Otherwise normal EGD, biopsied for LATISHA testing. 4. Complete colonoscopy to the cecum with cold snare and biopsy polypectomy as above. 5. Fair prep. 6. Moderate pandiverticulosis coli. RECOMMENDATIONS: Repeat colonoscopy in 3 years' time given 1 cm polyp on the right. In addition, would recommend continuing PPI at this point. It seems to be controlling his symptoms well. If this is indeed Lin esophagus, would recommend a repeat EGD in 3 years' time. [id number]/[facility] #: [id number] [facility]
== END | disposition home or self-care (01) ==
LOC: OR 10:03
PROVIDERS: ATTEND Internal Medicine Gastroenterology
DX: K21.0 Gastro-esophageal reflux disease with esophagitis (principal); D12.0 Benign neoplasm of cecum; D12.3 Benign neoplasm of transverse colon; R19.5 Other fecal abnormalities; Z72.0 Tobacco use; E11.40 Type 2 diabetes mellitus with diabetic neuropathy, unspecified; E11.22 Type 2 diabetes mellitus with diabetic chronic kidney disease; Z79.4 Long term (current) use of insulin; I12.9 Hypertensive chronic kidney disease with stage 1 through stage 4 chronic kidney disease, or unspecified chronic kidney disease; N18.2 Chronic kidney disease, stage 2 (mild); E78.1 Pure hyperglyceridemia
CPT/HCPCS: 87077; 88305; J0360; J2250; J2405; J2704; J3010

== ENCOUNTER → 2019-05-18 13:25 | Inpatient (IN) | payer MEDICARE, MEDICAID ==
--- NOTE | 2019-05-02 14:31 | HP ---
PREOPERATIVE HISTORY AND PHYSICAL: DATE OF ADMISSION/SURGERY: 05/15/19 DATE OF OFFICE VISIT: 05/02/19 ATTENDING PHYSICIAN: Meli Gamboa MD.* (DICTATED BY ERICK VANCE) PROCEDURE SCHEDULED: Left total hip arthroplasty. CHIEF COMPLAINT: Left hip pain. HISTORY OF PRESENT ILLNESS: Mr. Jacob is a 58-year-old male with at least 5 years of increasingly severe left hip pain. He has difficulty walking more than a block. He has increased pain with prolonged standing, bending the hip or stair climbing. He has tried anti-inflammatories, pain medication, physical therapy and use of a cane without significant improvement in his symptoms. He now elects to proceed with left total hip arthroplasty scheduled 05/15/19. PAST MEDICAL HISTORY: Significant for diabetes, chronic back pain, diabetic neuropathy in his hands and feet, fibromyalgia, gastroesophageal reflux and osteoarthritis. PAST SURGICAL HISTORY: Right hip resurfacing done by Dr. Aviles in 2009, hernia repair, left fifth finger partial amputation. MEDICATIONS: 1. Chantix 1 mg twice daily. 2. Gabapentin 300 mg 4 capsules t.i.d. 3. Ibuprofen 600 mg 1 tab 3 times daily as needed. 4. Omeprazole 20 mg p.o. twice daily. 5. Humulin R insulin 100 units/mL, 15 to 25 units 3 times daily. 6. Levemir Flextouch 100 units/mL, 35 units once daily. 7. Atorvastatin 20 mg 1 p.o. q.a.m. 8. Pioglitazone 30 mg p.o. daily. 9. Losartan potassium 50 mg p.o. daily. ALLERGIES: No known drug allergies. FAMILY HISTORY: Significant for maternal diabetes and heart disease. Sister with a history of osteoarthritis. SOCIAL HISTORY: The patient lives with his mother. He is disabled. He has been using Chantix to quit smoking and is only smoking 2 cigarettes per day. He denies use of alcohol or recreational drugs. He ambulates with a cane. REVIEW OF SYSTEMS: He denies recent loss of consciousness, lightheadedness, dizziness, shortness of breath, chest pain, palpitations, gastrointestinal or genitourinary discomfort. He does note that he is having an upper GI series and a colonoscopy tomorrow with Dr. Johnson. PHYSICAL EXAMINATION GENERAL: He is alert and oriented x3, well developed, well nourished, in no acute distress. VITAL SIGNS: Height 67.5 inches, weight 244, pulse 65, BP 132/89, temperature 97.2. HEENT: PERRLA. EOMI. LUNGS: Clear to auscultation. HEART: Regular rate and rhythm. No murmur auscultated. ABDOMEN: Nontender, normoactive bowel sounds x4 quadrants. EXTREMITIES: Lower Extremities: His neurovascular status is intact distally bilaterally. The left hip reveals the skin to be intact without abrasions or excoriation. Hip flexion to 80 degrees with left groin pain, 0 degrees internal rotation, 20 degrees external rotation with groin pain, 5/5 ankle dorsiflexion and plantar flexion. Full sensation, 2+ dorsalis pedis pulse. DIAGNOSTIC STUDIES: Plain films of the left hip reveal severe osteoarthritis with [id number] contact, osteophyte formation and subchondral sclerosis. IMPRESSION: Advanced osteoarthritis, left hip. PLAN: The patient is scheduled to proceed with left total hip arthroplasty with Dr. Meli Gamboa, 05/15/19. Risks and benefits of the procedure are fully discussed with the patient today at the office visit and he elects to proceed. He will follow up in 10 to 14 days postoperatively. ERICK VANCE [id number]/[facility] #: [id number] MTDRoya
--- OUTSIDE RECORDS SUMMARY | 2019-05-15 08:29 | XMS REPORT | Continuity of Care Document ---
:1960 External Reference #:[id number] Author Name Deloris Rojo Care Team Providers Name Role Phone Mary Mendez MD Primary Care Physician Unavailable Payers Date Identification Numbers Payment Provider Subscriber Policy Number: [id number] Medicare Juanis Jacob PayID: [id number] [address] [place] [address] Policy Number: [id number] Medicaid Juanis Jacob Group Name: 1 1 [address] PayID: [id number] [place] [address] Problems Active Problems Provider Date Localized, primary osteoarthritis of the pelvic Meli Gamboa M.D. Onset: region and thigh Prosthetic arthroplasty of the hip Meli Gamboa M.D. Onset: 05/02/2017 Family History Date Family Member(s) Observation Comments General Diabetes General Heart Disease General Rheumatoid Arthritis General Kidney disease Brother passed of Kidney disease. Social History Type Date Description Comments Sex Unknown Lives With Negative For Spouse Lives With Mother Occupation Disabled ETOH Use Negative For Denies alcohol use ETOH Use Occasionally consumes beer Recreational Drug Use Denies Drug Use Tobacco Use Start: Unknown Light tobacco smoker (10 or fewer cigarettes/day) Smoking Status Reviewed: 05/02/19 Light tobacco smoker (10 or fewer cigarettes/day) Exercise Type/Frequency Does not exercise Allergies, Adverse Reactions, Alerts Description No Known Drug Allergies Medications Active Medications SIG Qnty Indications Ordering Date Provider Rolling Walker With use for ambulation 1units M16.12 Meli Gamboa, 2018 Seat dx - severe L hip M.DMarcia oa Chantix 1 mg twice a day Unknown 1mg Tablets Losartan Potassium Take 1 Tablet By Unknown 50mg Mouth Every Day Tablets Pioglitazone HCL Take 1 Tablet By Unknown 30mg Mouth Every Day Tablets Atorvastatin Calcium Take 1 Tablet By Unknown Mouth Every Day In 20mg Tablets The Evening Ibu take 1 tablet by Unknown 600mg Tablets mouth three times a day Levemir Flextouch 20 units twicwe a Unknown daily 100Unit/ML Solution Pen-Inject Humulin R 10 units before Unknown 100Unit/ML meals. Solution Omeprazole 1 by mouth twice Unknown 20mg Tablets daily DR Ibuprofen 1 tab three times Unknown 600mg Tablets a day prn Gabapentin take 4 capsules Unknown 300mg tid Capsules History Medications Albuterol Sulfate HFA 1-2 puffs every 4 Unknown - 03/12/2018 Powder hours as needed sob Oxycodone HCL 2 by mouth TIDprn Unknown - 04/19/2018 10mg Tablets Oxycodone HCL 1 tabs by mouth tid Unknown - 04/19/2018 5mg Capsules prn Proair HFA 2 puffs by mouth prn Unknown - 03/12/2018 108(90Base) mcg/Act Aerosol Atorvastatin Calcium take 1 tablet at Unknown - 03/13/2018 20mg Tablets bedtime Ventolin HFA 2 puffs by mouth prn Unknown - 05/04/2017 108(90Base) mcg/Act Aerosol Actos 1 by mouth every day Unknown - 05/04/2017 30mg Tablets Maalox Advanced Maximum as needed Unknown - 03/13/2018 Strength Glipizide 1 by mouth once daily Unknown - 05/01/2019 10mg Tablets Vital Signs Date Vital Result Comment 05/02/2019 8:57am Height 67.5 inches 5'7.50" Weight 244.00 lb Heart Rate 65 /min BP Systolic 132 mmHg BP Diastolic 84 mmHg Respiratory Rate 16 /min Body Temperature 97.2 F Pain Level 6 BMI (Body Mass Index) 37.6 kg/m2 04/23/2019 9:36am Height 67.5 inches 5'7.50" Weight 239.00 lb Heart Rate 78 /min BP Systolic Sitting 136 mmHg left arm BP Diastolic Sitting 82 mmHg left arm Body Temperature 97.5 F O2 % BldC Oximetry 97 % room air BMI (Body Mass Index) 36.9 kg/m2 03/21/2019 11:07am Height 67.5 inches 5'7.50" Weight 239.75 lb Heart Rate 78 /min BP Systolic 130 mmHg BP Diastolic 80 mmHg Respiratory Rate 16 /min Pain Level 7 BMI (Body Mass Index) 37.0 kg/m2 04/20/2018 10:53am Height 67 inches 5'7" Weight 230.00 lb Heart Rate 74 /min BP Systolic 160 mmHg BP Diastolic 84 mmHg Respiratory Rate 12 /min Body Temperature 98.2 F Pain Level 3 BMI (Body Mass Index) 36.0 kg/m2 04/05/2018 10:37am Height 67 inches 5'7" Weight 238.00 lb Heart Rate 69 /min Respiratory Rate 18 /min Body Temperature 97.9 F Pain Level 5 BMI (Body Mass Index) 37.3 kg/m2 03/22/2018 10:53am Height 67 inches 5'7" Weight 238.00 lb Heart Rate 78 /min BP Systolic 118 mmHg BP Diastolic 66 mmHg Respiratory Rate 12 /min Body Temperature 98.1 F Pain Level 4 BMI (Body Mass Index) 37.3 kg/m2 03/13/2018 10:21am Height 67 inches 5'7" Weight 239.00 lb Heart Rate 80 /min BP Systolic Sitting 128 mmHg BP Diastolic Sitting 82 mmHg Body Temperature 98.0 F Pain Level 7 BMI (Body Mass Index) 37.4 kg/m2 05/12/2017 3:35pm Height 67 inches 5'7" Weight 231.00 lb with boots Heart Rate 84 /min BP Systolic Sitting 138 mmHg LA reg cuff BP Diastolic Sitting 92 mmHg LA reg cuff BMI (Body Mass Index) 36.2 kg/m2 Ejection Fraction 55% - 60% echo 05/06/17 05/05/2017 12:45pm Height 67 inches 5'7" Weight 227.00 lb without shoes Heart Rate 80 /min BP Systolic 124 mmHg Rue lrg cuff BP Diastolic 72 mmHg Rue lrg cuff BP Systolic Sitting 140 mmHg Lue lrg cuff BP Diastolic Sitting 80 mmHg Lue lrg cuff BP Systolic Standing 132 mmHg Lue lrg cuff BP Diastolic Standing 80 mmHg Lue lrg cuff Respiratory Rate 17 /min BMI (Body Mass Index) 35.5 kg/m2 05/02/2017 11:14am Height 67 inches 5'7" Weight 228.00 lb Heart Rate 73 /min BP Systolic 153 mmHg BP Diastolic 93 mmHg BMI (Body Mass Index) 35.7 kg/m2 Results Test Date Facility Test Result H/L Range Note CBC Auto 05/02/2019 [facility] White Blood 8.9 10^3/uL Normal 3.5-10.[address] [place] [address] [phone] Red Blood Count 4.68 10^6/uL Normal 4.18-5.48 Hemoglobin 12.4 g/dL Low 14.0-18.0 Hematocrit 37 % Low 42-52 Mean Corpuscular Volume 79 fL Low 80-94 Mean Corpuscular Hemoglobin 27 pg Normal 27-31 Mean Corpuscular HGB Conc 34 g/dL Normal 31-36 Red Cell Distribution Width 15 % Normal 10-15 Platelet Count 240 10^3/uL Normal 150-450 Mean Platelet Volume 7.9 fL Normal 7.4-10.4 Abs Neutrophils 6.0 10^3/uL Normal 1.5-7.7 Abs Lymphocytes 1.9 10^3/uL Normal 1.0-4.8 Abs Monocytes 0.7 10^3/uL Normal 0-0.8 Abs Eosinophils 0.2 10^3/uL Normal 0-0.6 Abs Basophils 0.0 10^3/uL Normal 0-0.2 Abs Nucleated RBC 0.0 10^3/uL Granulocyte % 67.3 % Lymphocyte % 21.5 % Monocyte % 8.0 % Eosinophil % 2.7 % Basophil % 0.5 % Nucleated Red Blood Cells % 0.0 Urinalysis Profile 05/02/2019 [facility] Urine Color Yellow [address] [place] [address] [phone] Urine Appearance Cloudy Urine Specific [place] 1.017 Normal 1.010-1.030 Urine pH 5.0 Normal 5-9 Urine Urobilinogen Negative Negative Urine Ketones Negative Negative Urine Protein 3+(>=500 mg/dL) Abnormal Negative Urine Leukocytes Negative Negative Urine Blood 2+ Abnormal Negative Urine Nitrite Negative Negative Urine Bilirubin Negative Negative Urine Glucose 2+(150 mg/dL) Abnormal Negative Urine White Blood Cell Trace(0-5/hpf) Absent Urine Red Blood Cell 2+(6-10/hpf) Abnormal Absent Urine Bacteria Absent Absent Comp Metabolic 05/02/2019 [facility] Sodium 139 mmol/L Normal 135-[address] [place] [address] [phone] Potassium 4.7 mmol/L Normal 3.5-5.0 Chloride 108 mmol/L Normal 101-111 Co2 Carbon Dioxide 26 mmol/L Normal 22-32 Anion Gap 5 mmol/L Normal 2-11 Glucose 199 mg/dL High 70-100 Blood Urea Nitrogen 12 mg/dL Normal 6-24 Creatinine 1.01 mg/dL Normal 0.67-1.17 BUN/Creatinine Ratio 11.9 Normal 8-20 Calcium 8.9 mg/dL Normal 8.6-10.3 Total Protein 6.3 g/dL Low 6.4-8.9 Albumin 3.5 g/dL Normal 3.2-5.2 Globulin 2.8 g/dL Normal 2-4 Albumin/Globulin Ratio 1.3 Normal 1-3 Total Bilirubin 0.70 mg/dL Normal 0.2-1.0 Alkaline Phosphatase 50 U/L Normal 34-104 Alt 15 U/L Normal 7-52 Ast 17 U/L Normal 13-39 Egfr Non- 75.9 >60 Egfr 91.8 >60 1 Inr/Protime 05/02/2019 [facility] Inr 0.90 Normal 0.82-1.[address] [place] [address] [phone] Laboratory test 05/02/2019 [facility] Partial 34.8 Normal 26.0 -38.[address] [place] [address] Time PTT [phone] Type & Screen 05/02/2019 [facility] Patient A Negative [address] Blood Type [place], [place] [id number] [phone] Antibody Screen NEGATIVE Urine Culture And 05/02/2019 [facility] Urine SEE RESULT [address] Culture BELOW [place], [place] [address] [phone] Laboratory test 03/14/2018 [facility] Point of 349 mg/dL High 70-10 [address] Care Glucose 0 [place], [place] [address] [phone] Laboratory test 03/14/2018 [facility] Point of 312 mg/dL High 70-10 [address] Care Glucose 0 [place] [address] [phone] Laboratory test 03/14/2018 [facility] Point of 253 mg/dL High 70-10 [address] Care Glucose 0 [place] [address] [phone] 1 Because ethnic data is not always readily available, this report includes an eGFR for both -Americans and non- Americans. The National Kidney Disease Education Program (NKDEP) does not endorse the use of the MDRD equation for patients that are not between the ages of 18 and 70, are , have extremes of body size, muscle mass, or nutritional status, or are non- or non-. According to the National Kidney Foundation, irrespective of diagnosis, the stage of the disease is based on the level of kidney function: Stage Description GFR(mL/min/1.73 m(2)) 1 Kidney damage with normal or decreased GFR 90 2 Kidney damage with mild decrease in GFR 60-89 3 Moderate decrease in GFR 30-59 4 Severe decrease in GFR 15-29 5 Kidney failure <15 (or dialysis) 2 Standard intensity warfarin therapeutic range: 2.0-3.0 High intensity warfarin therapeutic range: 2.5-3.5 3 SEE RESULT BELOW Name: JUANIS JACOB : [address]: Meli Gamboa MD Acct: [id number] Unit: [id number] AGE: 58 Location: [facility] Re05/02/19 SEX: M Status: REG REF SPEC: [id number] KLEBER: 05/02/19 [facility] DR: Meli Gamboa MD REQ: [id number] RECD: 05/02/19 STATUS: [facility] DR: Mary Mendez MD _ SOURCE: URINE SPDESC: ORDERED: Urine Culture QUERIES: Urine Source: Clean Catch Procedure Result Reported Site Urine Culture Final 05/03/19- 1223 ML No Growth (<1,000 CFU/mL) * ML - Main Lab . END OF REPORT DEPARTMENT OF PATHOLOGY, [address] [place] [address] Josue Herrera M.D. Director [facility] # [id number] 4 Button Attaching Machine Operator: [id number] 5 Button Attaching Machine Operator: [id number] 6 Button Attaching Machine Operator: [id number] Procedures Date Code Description Status 03/14/2018 28194 Skin Tissue Rearrange To 10 SQ CM Completed FRHD/CHK/CHN/MTH/NK/Ax/Gen/H/FT 03/14/2018 12484 Skin Tissue Rearrange To 10 SQ CM Completed FRHD/CHK/CHN/MTH/NK/Ax/Gen/H/FT 05/10/2017 13091 Treadmill Interp/Report Only Completed 05/10/2017 22981 Stress Test Supervsn W/Out I/R Completed 05/06/2017 89642 ECHO Transthoracic, Real-Time 2D With Doppler And Color Completed Flow 05/05/2017 73912 EKG Tracing & Interpretation Completed 08/28/2012 25566 Rad Exam; Hip Unilat Completed 08/28/2012 24604 Rad Exam; Hip Unilat Completed 08/28/2012 64776 Rad Exam; Pelvis Completed Encounters Type Date Location Provider Dx Diagnosis Office Visit 03/21/2019 Orthopedic Meli Gamboa, M25.552 Pain in left hip 11:00a [facility] M16.12 Unilateral primary osteoarthritis, left hip Office Visit 03/13/2018 Orthopedic Deepthi S68.627A Partial traumatic 10:15a [facility] init Office Visit 03/11/2018 Orthopedic Jagdeep Okeefe S68.627A Partial traumatic 9:39a Services [facility] MD kim wolff, init Office Visit 05/12/2017 Dario Phipps SMarcia Z01.810 Encounter for 4:00p Cardiology isaiah Gilletterocedkatherine Figueroa cardiovascular examination M16.12 Unilateral primary osteoarthritis, left hip E78.4 Other hyperlipidemia Z82.49 Family hx of ischem heart dis and oth dis of the circ sys E66.9 Obesity, unspecified Office Visit 05/05/2017 Halle Diallo Z01.810 Encounter for 1:40p Cardiology Freedom Gillette M.D. preprocedural [facility] cardiovascular examination R06.02 Shortness of breath E78.4 Other hyperlipidemia R94.31 Abnormal electrocardiogram [ECG] [EKG] Z82.49 Family hx of ischem heart dis and oth dis of the circ sys Office Visit 05/02/2017 10:30a Orthopedic Services Meli Gamboa, M25.552 Pain in left Of [facility].James Figueroa hip M16.12 Unilateral primary osteoarthritis, left hip M25.551 Pain in right hip Z96.641 Presence of right artificial hip joint Office Visit 08/28/2012 2:15p Orthopedic gal Morales, 716.95 Arthropathy Unspec [facility] Plan of Treatment Future Appointment(s):05/15/2019 3:30 pm - Vinnie Dudley PA-C at [facility]05/15/2019 3:30 pm - SAMPSON Villarreal at [facility]05/28/2019 10:00 am - Meli Gamboa M.D. at [facility]07/10/2019 3:00 pm - Bernadette Bryant MD at [facility] Rbgzpspjbx37/06/2019 3:30 pm - Meli Gamboa M.D. at [facility]05/02/2019 - Meli Gamboa M.D.M16.12 Unilateral primary osteoarthritis, left hipFollow up:Follow up: 10-14 days post op
--- OUTSIDE RECORDS SUMMARY | 2019-05-15 08:29 | XMS REPORT | Continuity of Care Document ---
:1960 External Reference #:[id number] Author Name Luanne Rossi Care Team Providers Name Role Phone Mary Mendez MD Primary Care Physician Unavailable Payers Date Identification Numbers Payment Provider Subscriber Policy Number: [id number] Medicare Juan Jacob PayID: [id number] [address] [place] [address] Policy Number: [id number] Medicaid Juan Jacob Group Name: 1 1 [address] PayID: [id number] [place] [address] Problems Active Problems Provider Date Localized, primary [...] Date Facility Test Result H/L Range Note Laboratory test 03/14/2018 [facility] Point of Care 349 mg/dL High 70-100 [address] [place] [address] [phone] Laboratory test 03/14/2018 [facility] Point of Care 312 mg/dL High 70-100 [address] Glucose [place], [place] [address] [phone] Laboratory test 03/14/2018 [facility] Point of Care 253 mg/dL High 70-100 [address] [place] [address] [phone] 1 [employer] Make Up Helper: [id number] 2 [employer] Make Up Helper: [id number] 3 [employer] Make Up Helper: [id number] Procedures Date Code Description Status 03/14/2018 15118 Skin Tissue Rearrange To 10 SQ CM Completed FRHD/CHK/CHN/MTH/NK/Ax/Gen/H/FT 03/14/2018 94504 Skin Tissue Rearrange To 10 SQ CM Completed FRHD/CHK/CHN/MTH/NK/Ax/Gen/H/FT 05/10/2017 78661 Treadmill Interp/Report Only Completed 05/10/2017 63932 Stress Test Supervsn W/Out I/R Completed 05/06/2017 85101 ECHO Transthoracic, Real-Time 2D With Doppler And Color Completed Flow 05/05/2017 73079 EKG Tracing & Interpretation Completed 08/28/2012 70389 Rad Exam; Hip Unilat Completed 08/28/2012 80150 Rad Exam; Hip Unilat Completed 08/28/2012 82260 Rad Exam; Pelvis Completed Encounters Type Date Location Provider Dx Diagnosis Office Visit 03/21/2019 Orthopedic Meli Gamboa, M25.552 Pain in left hip 11:00a [facility] M16.12 Unilateral primary osteoarthritis, left hip Office Visit 03/13/2018 Orthopedic Deepthi S68.627A Partial traumatic 10:15a [facility] Dick trnsphal amp of l Joey little finger, init Office Visit 03/11/2018 Orthopedic Jagdeep Okeefe S68.627A Partial traumatic 9:39a Services [facility] MD kim fox of C.M.AMarcia little finger, init Office Visit 05/12/2017 Dario Phipps S. Z01.810 Encounter for 4:00p Cardiology Leta preprocedural [facility] cardiovascular examination M16.12 Unilateral primary osteoarthritis, left hip E78.4 Other hyperlipidemia Z82.49 Family hx of ischem heart dis and oth dis of the circ sys E66.9 Obesity, unspecified Office Visit 05/05/2017 Halle Phipps S. Z01.810 Encounter for 1:40p Card[facility] Gillette preprocedural [facility] cardiovascular examination R06.02 Shortness of breath [...] hip joint Office Visit 08/28/2012 2:15p Orthopedic Nate Morales, 716.95 Arthropathy Unspec [facility] Plan of Treatment Future Appointment(s):05/28/2019 10:00 am - Meli Gamboa M.D. at [facility]07/10/2019 3:00 pm - Bernadette Bryant MD at [facility] Zxwxolkjjw35/06/2019 11:30 am - Meli Gamboa M.D. at [facility]05/02/2019 - Meli Gamboa M.D.M16.12 Unilateral primary osteoarthritis, left hipFollow up:Follow up: 10-14 days post op
[2019-05-15] MEDS: celeCOXIB CAP* 200 MG PO ONE ×2 (09:27→09:28)
[2019-05-15] MEDS: fentaNYL* 50 MCG/ML 2 ML VIAL (100 MCG VIAL) IV PRN ×3 (15:51→16:49)
[2019-05-15] MEDS: oxyCODONE TAB* 5 MG TAB PO PRN ×2 (16:02→20:21)
[2019-05-15] MEDS: oxyCODONE/Acetamin 5/325 MG* TAB PO PRN ×2 (18:35→22:12)
[2019-05-15] MEDS: Insulin LISPRO* 1 UNITS UNIT SUBCUT SCH ×2 (18:35→20:41)
[2019-05-15] MEDS: Atorvastatin* 20 MG TAB PO SCH (18:36)
[2019-05-15] MEDS: Morphine 4 MG/ML VIAL (1 ml) 4 MG/ML VIAL IV PRN ×2 (19:08→23:21)
[2019-05-15] MEDS: Lactated Ringers 1000 ML Bag* 1,000 ML IV SCH (19:12)
--- NOTE | 2019-05-15 19:36 | CONS ---
CC: Dr. Meli Gamboa * CONSULTATION REPORT: DATE OF CONSULT: 05/15/19 REQUESTING PHYSICIAN: Dr. Meli Gamboa. ATTENDING PHYSICIAN: Dr. Mandy Castillo (dictated by Courtney Chandler NP). REASON FOR CONSULT: Left hip total arthroplasty. HISTORY OF PRESENT ILLNESS: Mr. Jacob is a 58-year-old male with past medical history of diabetes, chronic kidney disease, GERD, hypertension and diabetic neuropathy, who presents to [facility] today for an elective left total hip arthroplasty. The patient has reportedly had 5 years of increasing left hip pain and failed conservative management. He elected to proceed with surgery. On my exam, the patient is in his room on short stay. He reports feeling well, though is having significant pain in his left pain which he rates a 7/10. Occasionally during the conversation, he has a difficult time talking and is noted to be grimacing. He reports that his diabetes has been poorly managed in the past, although recently has been working to manage his diabetes better because he is concerned about developing complications from diabetes. He did see his primary care provider prior to surgery to receive preop clearance and did have a stress test on 05/11/19, which was noted to be low risk without any evidence of ischemia. PAST MEDICAL HISTORY: 1. Diabetes mellitus type 2. 2. Diabetic neuropathy. 3. Chronic kidney disease. 4. GERD. 5. Hyperlipidemia. PAST SURGICAL HISTORY: 1. Right hip resurfacing. 2. Hernia repair. 3. Left fifth finger partial amputation. HOME MEDICATIONS: 1. Atorvastatin 20 mg p.o. daily. 2. Gabapentin 1200 mg p.o. t.i.d. 3. Insulin detemir 20 units subcu b.i.d. 4. Insulin NPH 10 units subcu a.c. 5. Losartan 50 mg p.o. daily. 6. Multivitamin 1 tab p.o. daily. 7. Omeprazole 20 mg p.o. b.i.d. 8. Pioglitazone 30 mg p.o. daily. 9. Chantix 1 mg p.o. b.i.d. ALLERGIES: ACARBOSE, METFORMIN, NAPROXEN, and NICOTINE. FAMILY HISTORY: The patient has 5 siblings, all of whom have had diabetes and heart disease. He had a younger sister who at the age of 41 due to an [place] and he had a brother who of kidney disease secondary to diabetes. His mother also carries a history of diabetes and heart disease. SOCIAL HISTORY: The patient is a previous smoker. He reports quitting 3 days ago and has been using Chantix successfully. He denies any alcohol use. He lives at home with his mother who will be his surrogate decision maker in the event he is unable to make his own decisions. REVIEW OF SYSTEMS: An 11-point review of systems was performed and all the pertinent positive and negative findings are in the HPI. All other systems are negative. PHYSICAL EXAM: Mr. Jacob is a well-developed, well-nourished, male, lying in bed, in no acute distress. He appears his stated age. Vital Signs: Temp 96.6, heart rate 64, respiratory rate 18, oxygen saturation 95 % on room air, blood pressure 155/82. HEENT: Head is atraumatic, normocephalic. Visual camacho are grossly intact. Oral mucous membranes are moist. Neck: Trachea midline. No lymphadenopathy. Thyroid not palpable. Lungs: Clear to auscultation throughout without rhonchi, wheezes, or rales. Cardiovascular: Regular rate and rhythm. S1, S2 present. No murmurs, rubs, or gallops. No JVD. Extremities: Skin warm and smooth bilaterally. No edema. No clubbing or cyanosis. Neuro: Awake, alert, and oriented x4. Cranial nerves II through XII grossly intact. Moves all extremities. The patient has no sensation below his mid shins bilaterally and this is his baseline. Skin: There is a surgical dressing intact to the left hip. DIAGNOSTIC STUDIES/LAB DATA: The patient had blood work on 05/02/19, which showed the following: WBC 8.9, RBC 4.68, hemoglobin 12.4, hematocrit 37, platelets 240. INR 0.9. Sodium 139, potassium 4.7, chloride 108, carbon dioxide 26, BUN 12, creatinine 1.01. Urinalysis with protein, red blood cells, and glucose. Chest x-ray on 05/02/19 reads as no active cardiopulmonary disease. ASSESSMENT AND PLAN: Mr. Jacob is a 58-year-old male with past medical history of type 2 diabetes, chronic kidney disease, diabetic neuropathy, gastroesophageal reflux disease, and chronic back pain, who presents to [facility] today for an elective left total hip arthroplasty. Hospital Medicine has been asked to consult for co- medical management for: 1. Left total hip arthroplasty. Per Ortho. 2. Diabetes. The patient's most recent A1c in our system was 10.5 back in February. He does take a significant amount of insulin at home. Glucose this morning prior to surgery was 134 and postop was 229. I will hold his pioglitazone and his regular insulin. I have placed him on Lantus at a decreased dose of 10 units daily starting tomorrow morning. The patient will also be covered by sliding scale Lispro. 3. Hypertension. The patient is hypertensive postoperatively with systolics in the 150s and 160s. We will resume his losartan tomorrow morning. We will monitor him overnight. I have ordered hydralazine for systolic pressure greater than 170. 4. Chronic kidney disease. Creatinine is normal and at baseline. 5. Diabetic neuropathy. Continue gabapentin. 6. Gastroesophageal reflux disease. Continue omeprazole. 7. Hyperlipidemia. Continue atorvastatin. 8. FEN: The patient does not require any fluid resuscitation or electrolyte repletion. A BMP has been ordered for the morning. He was ordered a regular diet by Ortho, though I will change this to a consistent carb diet. 9. Code status: The patient will be a full code. 10. DVT prophylaxis: Per Ortho. TIME SPENT: Approximately 40 minutes was spent on this consultation, greater than half of that time was spent [id number] with the patient, obtaining my history, performing my physical exam, and reviewing the plan of care. This case has been reviewed with my attending Dr. Castillo, who is in agreement with the plan of care. COURTNEY CHANDLER, FOLDER SEAMER [id number]/CPS #: [id number] RUI
--- NOTE | 2019-05-15 20:10 | OP ---
Operative Report - Blank - Operative Report Date of Operation: 05/15/19 Note: JUANIS LOPEZ 1960 Date Of Surgery: 05/15/19 Meli Gamboa MD Dough Molder: Alexx SUAREZ did help throughout the procedure with preparation of the hip, wound retraction, manipulation of the hip, and wound closure. Anesthesiologist: Alexx Hernandez MD Anesthesia Type: Spinal Preoperative Diagnosis: Left severe degenerative osteoarthritis of the hip Postoperative Diagnosis: As above Procedure Performed: Left Total Hip Arthroplasty Complications: None Specimen: Femoral head and acetabular reamings sent to pathology. Hardware used: This is uncemented Arsenio total hip arthroplasty hardware for the femur a size 5 accolade II with 127 neck angle femoral component, for the acetabulum a size 52E trident II tritanium cluster hole shell with one 15 mm screw, for the insert a size 36E trident X3 polyethylene insert, and for the femoral head a size 36 + 0 V40 femoral head. Brief history/Indication: JUANIS LOPEZ was known in clinic and had a history of severe left hip pain. He failed conservative treatment with anti- inflammatories, pain pills, intra-articular injections and physical therapy. He elected to undergo left total hip arthroplasty due to continued pain and decreased quality of life. Radiographs showed severe end stage osteoarthritis of the hip with bone on bone contact. Informed consent was obtained from the patient. He understood the risks of surgery included but were not limited to: bleeding, infection, damage to nearby structures, intraoperative fracture, nerve palsy, failure of the hardware, early loosening, stiffness or loss of motion, dislocation, leg length discrepancy, anesthesia complications, stroke, heart attack, blood clot and . He wished to proceed. Intra-Operative findings: Intraoperatively the patient was noted to have severe loss of cartilage of the acetabulum and femoral head. Description of the Procedure: JUANIS LOPEZ was identified in the preanesthesia unit. His left hip was marked as the correct operative side. Informed consent was signed and placed in the chart. The patient was taken to the operating room and placed under anesthesia without complication. A bhatti catheter was placed. The patient was placed on the peg board with all bony prominences well padded. The left lower extremity was prepped and draped in the usual sterile fashion. Preoperative time -out was made to correctly identify the patient, side and site. Appropriate intraoperative antibiotics were given within one hour of incision. A standard posterior incision was made and carried sharply down to the lateral fascia. A new 10 blade was used to make an incision in the fascia in line with the skin incision. A charnley retractor was placed. The piriformis and conjoined tendons were identified and elevated off the posterolateral femur using electrocautery. These were tagged with number 5 Ethibond. Next electrocautery was used to make a posterolateral capsular flap and this was tagged with number 5 Ethibonds. The hip was carefully dislocated. Lesser trochanter to the center of the femoral head was measured at 63 mm. The oscillating saw was used to make the femoral neck cut. The femoral head was carefully removed. The femur was retracted anteriorly and the acetabular retractors were placed. Long-handled knife was used to sharply remove any remaining labrum from the acetabular rim. The acetabulum was sequentially reamed up to a size 52. A bleeding subchondral bone bed was obtained. A trial liner was placed and had excellent fit and stability. A 52E trident II tritanium cup with one 15 mm screw was placed and had excellent stability with appropriate anteversion and abduction angle. A size 36E polyethylene liner was impacted into the acetabular shell. The liner was checked for stability and was stable. Next attention was turned to preparation of the femoral canal. A canal finder was used to enter the proximal femur. The femoral canal was sequentially broached up to a size 5 femoral broach trial. A trial neck and 36 +0 trial femoral head was chosen. Lesser trochanter to center of the femoral head measurement was satisfactory. The hip was reduced and taken through a range of motion. The hip was stable in all positions with good soft tissue tension and appropriate leg lengths. The hip was dislocated and all trials were removed. The final implant chosen was a accolade II size 5 with 127 degree neck ankle stem. This stem was impacted into the femoral canal without difficulty. The stem was stable with appropriate anteversion. The femoral head chosen was a 36+ 0 ceramic head. The head was impacted onto the femoral neck without difficulty. The final lesser trochanter to center of the femoral head measurement was satisfactory. The hip was reduced and taken through a range of motion. The hip was stable in all positions with good soft tissue tension and appropriate leg lengths. The hip was copiously irrigated with sterile saline. The previously tagged capsule and tendons were repaired to the posterolateral femur through two trochanteric drill holes. The lateral fascia layer was closed using number 1 vicryls. The rest of the incision was closed in a layered fashion using 0 and 2-0 vicryls. The skin was closed using 3-0 monocryl suture and Dermabond. Sterile adaptic, 4x4s and paper tape was used to cover the incision. The patients anesthesia was reversed without difficulty. He was taken to the PACU in stable condition. Intended weight-bearing will be as tolerated with posterior hip precautions.
[2019-05-15] MEDS: Gabapentin CAP(*) 400 MG PO SCH (20:20)
[2019-05-15] MEDS: Docusate CAP* 100 MG PO SCH (20:21)
[2019-05-15] MEDS: Pantoprazole TAB * 40 MG TAB PO SCH (20:21)
[2019-05-15] MEDS: CMCS:Varenicline (NF) 1 MG TAB PO SCH (20:23)
[2019-05-15] MEDS: Magnesium Hydroxide LIQ* 30 ML UDC PO SCH (20:39)
[2019-05-15] MEDS: ceFAZolin 1 GM ADVAN(*) 1 GM in NS 0.9% 50 ML* 50 ML IVPB SCH (20:41)
[2019-05-16] MEDS: oxyCODONE TAB* 5 MG TAB PO PRN ×6 (00:20→21:39)
[2019-05-16] MEDS: oxyCODONE/Acetamin 5/325 MG* TAB PO PRN ×6 (02:33→23:44)
[2019-05-16] MEDS: ceFAZolin 1 GM ADVAN(*) 1 GM in NS 0.9% 50 ML* 50 ML IVPB SCH ×2 (04:29→12:33)
[2019-05-16 06:37] LABS: Calcium 7.9 mg/dL (8.6-10.3); EGFR African American 74.5 (>60); EGFR Non-African American 61.6 (>60); Potassium 4.2 mmol/L (3.5-5.0)
[2019-05-16 06:52] LABS: Hematocrit 28 % (42-52); Hemoglobin 9.7 g/dL (14.0-18.0); Mean Platelet Volume 8.6 fL (7.4-10.4); Platelet Count 177 10^3/uL (150-450)
[2019-05-16] MEDS: Lactated Ringers 1000 ML Bag* 1,000 ML IV SCH (07:10)
--- NOTE | 2019-05-16 08:12 | PN ---
Progress Note - Progress Note Date of Service: 05/16/19 SOAP: Subjective: []Pt seen at bedside. L hip pain is well controlled, progressing towards goals with PT. He feels well without CP, SOB, dizziness, nausea. Has 13 stairs and lives alone, requests rehab. Objective: []Gen: NAD, appears well LLE: Left hip dressing CDI without surrounding erythema, thigh soft, DP2+, DF/ PF intact, sensation intact to light touch distally Calves supple and nontender without erythema, edema or palpable cords Assessment: []POD [address] Gamboa Plan: []WBAT PT/OT Posterior hip precautions Eliquis 2.5 mg po BID x 30 days post op hyponatremia 132 repeat Na level tomorrow Vital Signs Temp 97.8 F 05/16/19 07:13 Pulse 79 05/16/19 07:13 Resp 18 05/16/19 08:30 BP 151/69 05/16/19 07:13 Pulse Ox 98 05/16/19 08:00 Intake & Output 05/15/19 05/16/19 05/16/19 18:59 06:59 18:59 Intake Total 2940 550 Output Total 875 850 Balance 2065 -300 Weight 244 lb Intake: IV Fluids 2700 LR 2700 IVPB 50 ABX - CEFAZOLIN 50 Oral 240 500 Output: Ramos 725 850 Estimated Blood Loss 150 Laboratory Last Values Hgb 9.7 g/dL (14.0-18.0) L 05/16/19 05:48 Hct 28 % (42-52) L 05/16/19 05:48 Plt Count 177 10^3/uL (150-450) 05/16/19 05:48 MPV 8.6 fL (7.4-10.4) 05/16/19 05:48 Sodium 132 mmol/L (135-145) L 05/16/19 05:48 Potassium 4.2 mmol/L (3.5-5.0) 05/16/19 05:48 Chloride 101 mmol/L (101-111) 05/16/19 05:48 Carbon Dioxide 25 mmol/L (22-32) 05/16/19 05:48 Anion Gap 6 mmol/L (2-11) 05/16/19 05:48 BUN 23 mg/dL (6-24) 05/16/19 05:48 Creatinine 1.21 mg/dL (0.67-1.17) H 05/16/19 05:48 Est GFR ( Amer) 74.5 (>60) 05/16/19 05:48 Est GFR (Non-Af Amer) 61.6 (>60) 05/16/19 05:48 BUN/Creatinine Ratio 19.0 (8-20) 05/16/19 05:48 Glucose 289 mg/dL (70-100) H 05/16/19 05:48 POC Glucose (mg/dL) 296 mg/dL (70-100) H 05/16/19 08:05 Calcium 7.9 mg/dL (8.6-10.3) L 05/16/19 05:48
[2019-05-16] MEDS: Magnesium Hydroxide LIQ* 30 ML UDC PO SCH ×2 (08:25→21:43)
[2019-05-16] MEDS: Docusate CAP* 100 MG PO SCH ×2 (08:26→21:44)
[2019-05-16] MEDS: Gabapentin CAP(*) 400 MG PO SCH ×4 (08:26→21:39)
[2019-05-16] MEDS: Apixaban* 2.5 MG TAB PO SCH ×2 (08:26→21:40)
[2019-05-16] MEDS: Losartan TAB* 25 MG PO SCH (08:26)
[2019-05-16] MEDS: CMCS:Varenicline (NF) 1 MG TAB PO SCH ×2 (08:27→21:40)
[2019-05-16] MEDS: Pantoprazole TAB * 40 MG TAB PO SCH ×2 (08:28→21:39)
[2019-05-16] MEDS: Insulin LISPRO* 1 UNITS UNIT SUBCUT SCH ×4 (08:29→21:43)
[2019-05-16] MEDS: Morphine 4 MG/ML VIAL (1 ml) 4 MG/ML VIAL IV PRN (10:56)
[2019-05-16] MEDS: Morphine TAB Extended Release (*) 15 MG TAB.ER PO SCH (15:29)
--- NOTE | 2019-05-16 15:33 | PN ---
Subjective Date of Service: 05/16/19 Interval History: Patient is feeling poorly today because of pain in surgical leg, cramping and worse with activity. Patient denies CP, F/C, n/V, abdominal pain, diarrhea, numbness or tingling, or other pain. Family History: Unchanged from Admission Social History: Unchanged from Admission Past Medical History: Unchanged from Admission Objective Active Medications: Acetaminophen (Tylenol Tab*) 650 mg PO Q8H PRN PRN Reason: MILD PAIN or TEMP > 100.4 Apixaban (Eliquis*) 2.5 mg PO BID [facility] Last Admin: 05/16/19 08:26 Dose: 2.5 mg Atorvastatin Calcium (Lipitor*) 20 mg PO QPM [facility] Last Admin: 05/15/19 18:36 Dose: 20 mg Bisacodyl (Dulcolax Supp*) 10 mg DE DAILY PRN PRN Reason: constipation Cyclobenzaprine HCl (Flexeril Tab*) 5 mg PO TID PRN PRN Reason: SPASMS Last Admin: 05/16/19 10:57 Dose: 5 mg Dextrose (Dextrose 50% Vial 50 Ml*) 25 ml IV PUSH .FOR FS < 60 - SS PRN PRN Reason: FS < 60 Diphenhydramine HCl (Benadryl Iv*) 25 mg IV Q6H PRN PRN Reason: itching Docusate Sodium (Colace Cap*) 100 mg PO BID [facility] Last Admin: 05/16/19 08:26 Dose: 100 mg Gabapentin (Neurontin Cap(*)) 1,200 mg PO TID [facility] Last Admin: 05/16/19 13:48 Dose: 1,200 mg Hydralazine HCl (Apresoline Iv*) 5 mg IV SLOW PU Q6H PRN PRN Reason: Systolic Bp Greater Than: 170 Lactated Ringer's (Lactated Ringers 1000 Ml Bag*) 1,000 mls @ 100 mls/hr IV PER RATE [facility] Last Admin: 05/16/19 07:10 Dose: 100 mls/hr Insulin Glargine (Lantus(*)) 15 units SUBCUT Q24H [facility] Insulin Human Lispro (Humalog*) 0 units SUBCUT ACHS [facility]; Protocol Last Admin: 05/16/19 12:33 Dose: 3 units Lactulose (Lactulose*) 30 ml PO Q6H PRN PRN Reason: constipation Losartan Potassium (Cozaar Tab*) 50 mg PO QAM [facility] Last Admin: 05/16/19 08:26 Dose: 50 mg Magnesium Hydroxide (Milk Of Magnesia Liq*) 30 ml PO BID [facility] Last Admin: 05/16/19 08:25 Dose: 30 ml Magnesium Hydroxide (Milk Of Magnesia Liq*) 30 ml PO Q6H PRN PRN Reason: constipation Morphine Sulfate (Morphine Inj (Syringe))*) 2 mg IV Q2H PRN PRN Reason: PAIN Last Admin: 05/16/19 13:19 Dose: 2 mg Morphine Sulfate (Ms Contin(*)) 15 mg PO BID@0600,1800 [facility] Ondansetron HCl (Zofran Inj*) 4 mg IV Q6H PRN PRN Reason: nausea Oxycodone HCl (Roxycodone Tab*) 10 mg PO Q4H PRN PRN Reason: PAIN - SEVERE Last Admin: 05/16/19 12:32 Dose: 10 mg Oxycodone/Acetaminophen (Percocet 5/325 Tab*) 1 tab PO Q4H PRN PRN Reason: PAIN Oxycodone/Acetaminophen (Percocet 5/325 Tab*) 2 tab PO Q4H PRN PRN Reason: PAIN Last Admin: 05/16/19 14:40 Dose: 2 tab Pantoprazole Sodium (Protonix Tab*) 40 mg PO BID [facility] Last Admin: 05/16/19 08:28 Dose: 40 mg Varenicline (Chantix (Nf)) 1 mg PO BID [facility]; Protocol Last Admin: 05/16/19 08:27 Dose: 1 mg Vital Signs - 8 hr 05/16/19 05/16/19 05/16/19 08:00 08:26 08:30 Temperature Pulse Rate Respiratory 18 18 18 Rate Blood Pressure (mmHg) O2 Sat by Pulse 98 Oximetry 05/16/19 05/16/19 05/16/19 10:00 10:43 10:56 Temperature Pulse Rate Respiratory 18 18 18 Rate Blood Pressure (mmHg) O2 Sat by Pulse 98 Oximetry 05/16/19 05/16/19 05/16/19 10:57 11:18 12:32 Temperature 97.6 F Pulse Rate 78 Respiratory 18 17 18 Rate Blood Pressure 156/79 (mmHg) O2 Sat by Pulse 100 Oximetry 05/16/19 05/16/19 05/16/19 12:33 13:19 13:48 Temperature Pulse Rate Respiratory 18 18 18 Rate Blood Pressure (mmHg) O2 Sat by Pulse Oximetry 05/16/19 05/16/19 14:40 15:13 Temperature 98 F Pulse Rate 80 Respiratory 18 16 Rate Blood Pressure 142/66 (mmHg) O2 Sat by Pulse 100 Oximetry Oxygen Devices in Use Now: None Appearance: Patient is a 58yo male who appears stated age and is sitting in the bed in NAD. Eyes: No Scleral Icterus, PERRLA Ears/Nose/Mouth/Throat: NL Teeth, Lips, Gums, Clear Oropharnyx, Mucous Membranes Moist Neck: NL Appearance and Movements; NL JVP, Trachea Midline Respiratory: Symmetrical Chest Expansion and Respiratory Effort, Clear to Auscultation Cardiovascular: NL Sounds; No Murmurs; No JVD, RRR, No Edema Abdominal: NL Sounds; No Tenderness; No Distention, No Hepatosplenomegaly Lymphatic: No Cervical Adenopathy Extremities: No Edema, No Clubbing, Cyanosis Skin: No Rash or Ulcers, No Nodules or Sclerosis Neurological: Alert and Oriented x 3, NL Sensation, NL Muscle Strength and Tone , - - CN II-XII intact. Result Diagrams: 05/16/19 05:48 05/16/19 05:48 Assess/Plan/Problems-Billing Assessment: Patient is a 58yo male with a PMH for DM II, OA, History of single OD of Opiates , who is S/P LTHA and is having poor pain control. - Patient Problems (1) Post-operative state Current Visit: Yes Status: Acute Code(s): Z98.890 - OTHER SPECIFIED POSTPROCEDURAL STATES SNOMED Code(s): 58332285 Comment: - Management per ortho - Pain control per ortho - Awaiting BM, Passing Gas - Urinating - PT/OT, Trend H/H (2) Diabetes Current Visit: No Status: Chronic Code(s): E11.9 - TYPE 2 DIABETES MELLITUS WITHOUT COMPLICATIONS SNOMED Code(s): 82427363 Comment: - Relatively poor control - Increase Lantus - Hold Pioglitazone, May resume on D/C, but should F/U PCP for alternative medications with better safety profile and improved outcomes. (3) Hypertension Current Visit: No Status: Chronic Code(s): I10 - ESSENTIAL (PRIMARY) HYPERTENSION SNOMED Code(s): 58275871 Comment: - Slightly Hypertensive - Continue Losartan, PRN Hydralazine. - Start additional medications if indicated (4) Renal insufficiency Current Visit: No Status: Chronic Code(s): N28.9 - DISORDER OF KIDNEY AND URETER, UNSPECIFIED SNOMED Code(s): 067768268 Comment: - Stage 3a, Stable. (5) DVT prophylaxis Current Visit: Yes Status: Acute Code(s): Z29.9 - ENCOUNTER FOR PROPHYLACTIC MEASURES, UNSPECIFIED SNOMED Code(s): 488588238 Comment: - Eliquis Per Ortho. (6) Full code status Current Visit: Yes Status: Acute Code(s): Z78.9 - OTHER SPECIFIED HEALTH STATUS SNOMED Code(s): 274574450 Status and Disposition: Inpatient Thank you for this Consult, we will follow along with you. Feel Free to Call with Questions.
[2019-05-16] MEDS: Atorvastatin* 20 MG TAB PO SCH (17:17)
[2019-05-17] MEDS: oxyCODONE TAB* 5 MG TAB PO PRN ×4 (02:41→23:55)
[2019-05-17] MEDS: Morphine TAB Extended Release (*) 15 MG TAB.ER PO SCH ×2 (04:11→17:45)
[2019-05-17] MEDS: oxyCODONE/Acetamin 5/325 MG* TAB PO PRN ×4 (05:14→21:43)
[2019-05-17 05:24] LABS: Hematocrit 28 % (42-52); Hemoglobin 9.7 g/dL (14.0-18.0); Platelet Count 177 10^3/uL (150-450)
[2019-05-17] MEDS: Losartan TAB* 25 MG PO SCH (07:49)
[2019-05-17] MEDS: Apixaban* 2.5 MG TAB PO SCH ×2 (07:49→21:42)
[2019-05-17] MEDS: Gabapentin CAP(*) 400 MG PO SCH ×3 (07:50→21:42)
[2019-05-17] MEDS: Pantoprazole TAB * 40 MG TAB PO SCH ×2 (07:50→21:43)
[2019-05-17] MEDS: Magnesium Hydroxide LIQ* 30 ML UDC PO SCH ×2 (07:50→21:44)
[2019-05-17] MEDS: Docusate CAP* 100 MG PO SCH ×2 (07:50→21:43)
[2019-05-17] MEDS: Insulin LISPRO* 1 UNITS UNIT SUBCUT SCH ×5 (07:51→21:45)
[2019-05-17] MEDS: Insulin GLARGINE(*) 1 UNITS UNIT SUBCUT SCH (07:53)
[2019-05-17] MEDS: CMCS:Varenicline (NF) 1 MG TAB PO SCH ×2 (07:56→21:43)
--- NOTE | 2019-05-17 09:35 | PN ---
Progress Note - Progress Note Date of Service: 05/17/19 SOAP: Subjective: Pt is doing well. Pain controlled. Denies N/T, F/C, CP/SOB. Doing well with PT Objective: PE- 58 y/o WDWN M NAD, A&Ox3 LLE- dressing changed, inc c/d/i, calf soft NT, +df/pf ankle, + 2 DP pulse, SILT distally Vital Signs Temp Pulse Resp BP Pulse Ox 97.9 F 85 16 141/66 100 05/17/19 07:41 05/17/19 07:41 05/17/19 07:50 05/17/19 07:41 05/17/19 07:41 Laboratory Results - last 24 hr 05/16/19 05/16/19 05/16/19 11:49 17:21 21:20 Hgb Hct Plt Count MPV Sodium POC Glucose (mg/dL) 194 H 206 H 182 H 05/17/19 05/17/19 05/17/19 05:08 05:08 07:36 Hgb 9.7 L Hct 28 L Plt Count 177 MPV 8.0 Sodium 131 L POC Glucose (mg/dL) 204 H Assessment: []POD [address] Gamboa Plan: []WBAT PT/OT Posterior hip precautions Eliquis 2.5 mg po BID x 30 days post op MS Contin and Percocet for pain NA level stable Awaiting placement, probable DC this afternoon
[2019-05-17] MEDS: amLODIPine TAB* 5 MG PO SCH (12:52)
--- NOTE | 2019-05-17 14:07 | PN ---
Subjective Date of Service: 05/17/19 Interval History: Patient is improving today. Patient states he has much less pain. Patient has had no BM, but feels as if he is about to. Patient denies F/C, CP, SOB, dizziness, abdominal pain, or other pain. Family History: Unchanged from Admission Social History: Unchanged from Admission Past Medical History: Unchanged from Admission Objective Active Medications: Acetaminophen (Tylenol Tab*) 650 mg PO Q8H PRN PRN Reason: MILD PAIN or TEMP > 100.4 Amlodipine Besylate (Norvasc Tab*) 5 mg PO DAILY [facility] Last Admin: 05/17/19 12:52 Dose: 5 mg Apixaban (Eliquis*) 2.5 mg PO BID [facility] Last Admin: 05/17/19 07:49 Dose: 2.5 mg Atorvastatin Calcium (Lipitor*) 20 mg PO QPM [facility] Last Admin: 05/16/19 17:17 Dose: 20 mg Bisacodyl (Dulcolax Supp*) 10 mg DE DAILY PRN PRN Reason: constipation Cyclobenzaprine HCl (Flexeril Tab*) 5 mg PO TID PRN PRN Reason: SPASMS Last Admin: 05/16/19 10:57 Dose: 5 mg Dextrose (Dextrose 50% Vial 50 Ml*) 25 ml IV PUSH .FOR FS < 60 - SS PRN PRN Reason: FS < 60 Dextrose (D50w Syringe 50 Ml*) 12.5 gm IV PUSH .FOR FS < 60 - SS PRN PRN Reason: FS < 60 Diphenhydramine HCl (Benadryl Iv*) 25 mg IV Q6H PRN PRN Reason: itching Docusate Sodium (Colace Cap*) 100 mg PO BID [facility] Last Admin: 05/17/19 07:50 Dose: 100 mg Gabapentin (Neurontin Cap(*)) 1,200 mg PO TID [facility] Last Admin: 05/17/19 12:52 Dose: 1,200 mg Hydralazine HCl (Apresoline Iv*) 5 mg IV SLOW PU Q6H PRN PRN Reason: Systolic Bp Greater Than: 170 Last Admin: 05/17/19 04:11 Dose: 5 mg Lactated Ringer's (Lactated Ringers 1000 Ml Bag*) 1,000 mls @ 100 mls/hr IV PER RATE [facility] Last Admin: 05/16/19 07:10 Dose: 100 mls/hr Insulin Glargine (Lantus(*)) 15 units SUBCUT Q24H [facility] Stop: 05/18/19 09:00 Last Admin: 05/17/19 07:53 Dose: 15 unit Insulin Glargine (Lantus(*)) 20 units SUBCUT Q24H [facility] Insulin Human Lispro (Humalog*) 0 units SUBCUT ACHS [facility]; Protocol Last Admin: 05/17/19 12:52 Dose: 6 units Insulin Human Lispro (Humalog*) 3 units SUBCUT AC [facility] Lactulose (Lactulose*) 30 ml PO Q6H PRN PRN Reason: constipation Losartan Potassium (Cozaar Tab*) 50 mg PO QAM [facility] Last Admin: 05/17/19 07:49 Dose: 50 mg Magnesium Hydroxide (Milk Of Magnesia Liq*) 30 ml PO BID [facility] Last Admin: 05/17/19 07:50 Dose: 30 ml Magnesium Hydroxide (Milk Of Magnesia Liq*) 30 ml PO Q6H PRN PRN Reason: constipation Morphine Sulfate (Morphine Inj (Syringe))*) 2 mg IV Q2H PRN PRN Reason: PAIN Last Admin: 05/16/19 13:19 Dose: 2 mg Morphine Sulfate (Ms Contin(*)) 15 mg PO BID@0600,1800 [facility] Last Admin: 05/17/19 04:11 Dose: 15 mg Ondansetron HCl (Zofran Inj*) 4 mg IV Q6H PRN PRN Reason: nausea Oxycodone HCl (Roxycodone Tab*) 10 mg PO Q4H PRN PRN Reason: PAIN - SEVERE Last Admin: 05/17/19 07:50 Dose: 10 mg Oxycodone/Acetaminophen (Percocet 5/325 Tab*) 1 tab PO Q4H PRN PRN Reason: PAIN Oxycodone/Acetaminophen (Percocet 5/325 Tab*) 2 tab PO Q4H PRN PRN Reason: PAIN Last Admin: 05/17/19 10:55 Dose: 2 tab Pantoprazole Sodium (Protonix Tab*) 40 mg PO BID [facility] Last Admin: 05/17/19 07:50 Dose: 40 mg Varenicline (Chantix (Nf)) 1 mg PO BID [facility]; Protocol Last Admin: 05/17/19 07:56 Dose: 1 mg Vital Signs - 8 hr 05/17/19 05/17/19 05/17/19 07:14 07:41 07:50 Temperature 97.9 F Pulse Rate 85 Respiratory 16 16 16 Rate Blood Pressure 141/66 (mmHg) O2 Sat by Pulse 100 Oximetry 05/17/19 05/17/19 05/17/19 08:00 09:50 10:55 Temperature Pulse Rate Respiratory 16 16 16 Rate Blood Pressure (mmHg) O2 Sat by Pulse Oximetry 05/17/19 05/17/19 11:33 12:52 Temperature 98.4 F Pulse Rate 77 Respiratory 12 16 Rate Blood Pressure 157/72 (mmHg) O2 Sat by Pulse 97 Oximetry Oxygen Devices in Use Now: None Appearance: Patient is a 58yo male who appears stated age and is sitting in the bed in NAD. Eyes: No Scleral Icterus, PERRLA Ears/Nose/Mouth/Throat: NL Teeth, Lips, Gums, Clear Oropharnyx, Mucous Membranes Moist Neck: NL Appearance and Movements; NL JVP, Trachea Midline Respiratory: Symmetrical Chest Expansion and Respiratory Effort, Clear to Auscultation Cardiovascular: NL Sounds; No Murmurs; No JVD, RRR, No Edema Abdominal: NL Sounds; No Tenderness; No Distention, No Hepatosplenomegaly Lymphatic: No Cervical Adenopathy Skin: No Nodules or Sclerosis, - - Left hip incision covered. Neurological: Alert and Oriented x 3, NL Sensation, NL Muscle Strength and Tone , - - CN II-XII intact. Result Diagrams: 05/17/19 05:08 05/17/19 05:08 Assess/Plan/Problems-Billing Assessment: Patient is a 58yo male with a PMH for DM II, OA, History of single OD of Opiates , who is S/P LTHA and is having poor pain control. - Patient Problems (1) Post-operative state Current Visit: Yes Status: Acute Code(s): Z98.890 - OTHER SPECIFIED POSTPROCEDURAL STATES SNOMED Code(s): 82804345 Comment: - Management per ortho - Pain control per ortho - Awaiting BM, Passing Gas - Urinating - PT/OT, Trend H/H, stable (2) Diabetes Current Visit: No Status: Chronic Code(s): E11.9 - TYPE 2 DIABETES MELLITUS WITHOUT COMPLICATIONS SNOMED Code(s): 19199738 Comment: - Relatively poor control, improving - Increase Lantus and start scheduled mealtime insulin. - Hold Pioglitazone, May resume on D/C, but should F/U PCP for alternative medications with better safety profile and improved outcomes. (3) Hypertension Current Visit: No Status: Chronic Code(s): I10 - ESSENTIAL (PRIMARY) HYPERTENSION SNOMED Code(s): 17324522 Comment: - Slightly Hypertensive - Continue Losartan, PRN Hydralazine. - Start amlodipine at low dose. (4) Renal insufficiency Current Visit: No Status: Chronic Code(s): N28.9 - DISORDER OF KIDNEY AND URETER, UNSPECIFIED SNOMED Code(s): 264113133 Comment: - Stage 3a, Stable. (5) DVT prophylaxis Current Visit: Yes Status: Acute Code(s): Z29.9 - ENCOUNTER FOR PROPHYLACTIC MEASURES, UNSPECIFIED SNOMED Code(s): 605509077 Comment: - Eliquis Per Ortho. (6) Full code status Current Visit: Yes Status: Acute Code(s): Z78.9 - OTHER SPECIFIED HEALTH STATUS SNOMED Code(s): 072421834 Status and Disposition: Inpatient Thank you for this Consult, we will sign-off at this time. Feel Free to Call with Questions.
[2019-05-17] MEDS: Atorvastatin* 20 MG TAB PO SCH (17:45)
[2019-05-18] MEDS: oxyCODONE/Acetamin 5/325 MG* TAB PO PRN ×3 (03:21→12:04)
[2019-05-18] MEDS: Morphine TAB Extended Release (*) 15 MG TAB.ER PO SCH (05:42)
[2019-05-18] MEDS: Magnesium Hydroxide LIQ* 30 ML UDC PO SCH (07:46)
[2019-05-18] MEDS: amLODIPine TAB* 5 MG PO SCH (07:47)
[2019-05-18] MEDS: Docusate CAP* 100 MG PO SCH (07:47)
[2019-05-18] MEDS: Apixaban* 2.5 MG TAB PO SCH (07:47)
[2019-05-18] MEDS: Losartan TAB* 25 MG PO SCH (07:48)
[2019-05-18] MEDS: Pantoprazole TAB * 40 MG TAB PO SCH (07:48)
[2019-05-18] MEDS: Gabapentin CAP(*) 400 MG PO SCH (07:49)
[2019-05-18] MEDS: CMCS:Varenicline (NF) 1 MG TAB PO SCH (07:50)
[2019-05-18 08:13] LABS: Hematocrit 28 % (42-52); Hemoglobin 9.9 g/dL (14.0-18.0); Mean Platelet Volume 7.9 fL (7.4-10.4); Platelet Count 197 10^3/uL (150-450)
[2019-05-18] MEDS: Insulin GLARGINE(*) 1 UNITS UNIT SUBCUT SCH (08:20)
[2019-05-18] MEDS: Insulin LISPRO* 1 UNITS UNIT SUBCUT SCH ×4 (08:28→12:03)
[2019-05-18] MEDS: oxyCODONE TAB* 5 MG TAB PO PRN (09:48)
--- NOTE | 2019-05-18 10:54 | DS ---
Orthopedic Discharge Summary - Discharge Summary Date of Admission:05/15/19 Date of Discharge: 05/18/19 Date of Surgery: 05/15/19 Attending Orthopedic Provider: Dr. Gamboa Pre-operative Diagnosis: Degenerative arthritis left hip Operative Procedure: Left total hip arthroplasty Disposition of Patient: [facility] Rehabilitation Condition of Patient: Stable History: JUANIS LOPEZ is a 58 year old M with years of increasingly severe left hip pain. Patient has failed conservative management and has elected to undergo a left total hip replacement Hospital Course: JUANIS was admitted to [facility] on 05/15/19. Patient underwent a left total hip without complication followed by a brief recovery in PACU and transfer to the Short Stay Surgical Unit in stable condition. Our hospitalist service, physical therapy and occupational therapy also participated in this patients care. Post-op day 1: patient was alert and in no acute distress. Dressing was clean, dry and intact. Operative extremity dorsiflexion and plantarflexion intact, sensation intact to light touch distally , DP2+. Post-op day two: dressing was changed, incision was clean, dry and intact. Patient was deemed to be medically and orthopedically stable for discharge. Physical therapy goals were met. It was felt he would benefit from additional rehabilitation prior to returning to home and was found to be an acceptable candidate for rehab at [facility]. Home Medications Medication Instructions Recorded Confirmed Type Atorvastatin* [Lipitor 20 MG*] 20 mg PO QPM 05/09/17 05/15/19 History Insulin Detemir [Levemir Flextouch] 20 unit SUBCUT BID 05/09/17 05/15/19 History Losartan TAB* [Cozaar TAB*] 50 mg PO QAM 03/13/18 05/15/19 History Gabapentin 1,200 mg PO TID 12/24/18 05/15/19 History Pioglitazone TAB* [Actos TAB*] 30 mg PO QAM 12/24/18 05/15/19 History Omeprazole 20 mg PO BID 04/27/19 05/15/19 History Varenicline Tartrate [Chantix] 1 mg PO BID 04/27/19 05/15/19 History Multivitamin [Multiple Vitamins] 1 tab PO QAM 05/02/19 05/15/19 History Insulin NPH Human Isophane 10 unit SUBCUT TID AC 05/11/19 05/15/19 History [Humulin N Kwikpen] Apixaban* [Eliquis*] 2.5 mg PO BID tab 05/17/19 Rx Cyclobenzaprine TAB* [Flexeril 10 10 mg PO TID PRN tab 05/17/19 Rx MG TAB*] Docusate CAP* [Colace Cap*] 100 mg PO BID cap 05/17/19 Rx Morphine TAB Extended Rel(*) [Ms 15 mg PO BID@0600,1800 tab.er 05/17/19 Rx Contin(*)] oxyCODONE/Acetamin 5/325 MG* 1 tab PO Q4H PRN tab 05/17/19 Rx [Percocet 5/325 TAB*] oxyCODONE/Acetamin 5/325 MG* 2 tab PO Q4H PRN tab 05/17/19 Rx [Percocet 5/325 TAB*] DISCHARGE INSTRUCTIONS: Weight Bearing as tolerated Wound Care: OK to shower on post-op day 3, no bathing/ swimming/ submerging wound. Use gentle soap, pat dry. Cover with gauze, JAMES wrap or tape. Call Orthopedic office for increased drainage, redness, increased pain, or fever. Go to ER with shortness of breath or chest pain. Diet: Regular diet, increase fluids and fiber to prevent constipation. Continue to use stool softeners, call office if no bowel motion within 48 hours. Hip replacements: Continue Hip Precautions- do not cross legs or bend greater than 90 degrees/ squat - Continue physical therapy and occupational therapy exercises as shown. - May shower DVT Prophylaxis: - Eliquis- 2.5mg twice daily x 1 month - Pain control with: Percocet 5/325 mg 1-2 tabs by mouth every 4-6 hours as needed for pain. Maximum of 10 tabs per day Please note that percocet contains tylenol (acetaminophen). Maximum daily dose of tylenol is 4000 mg from all sources. Cyclobenzaprine 10 mg 1 tab every 8 hours as needed pain/spasms MS Contin 15 mg 1 tab every 12 hours x 7 days for pain - Antibiotics required prior to any dental work. FOLLOW UP: Follow up with Dr. Gamboa Within 10-14 days, call for appointment Please call our office with any questions or concerns ([phone])
[2019-05-18 12:07] VITALS: BP 131/64
[~2019-05-18 13:25] MED LIST changes: +Acetaminophen IV 1GM/100ML * 1,000 MG/100 ML VIAL IVPB ONE; +Acetaminophen IV 1GM/100ML * 100 ML ONE; +Acetaminophen TAB* 325 MG PO PRN; +Bisacodyl SUPP* 10 MG SUPP PR PRN; +Bupivacaine 0.5% SDV PF* 30ML VIAL ONE; +Cyclobenzaprine TAB* 10 MG PO PRN; +Dexamethasone IV* 4 MG/ML 1 ML (4 MG) IV SLOW PU ONE; +Dexamethasone IV* 4 MG/ML 1 ML (4 MG) ONE; +Dextrose 50% Syringe 50 ML* 25 GM/50 ML SYRINGE IV PUSH PRN; +Dextrose 50% VIAL 50 ml IV PUSH PRN; +DiMENhydriNATE IV* 50 MG/ML VIAL IV PUSH PRN; +Glycopyrrolate IV* 0.2 MG/ML 1 ML VIAL ONE; +HYDROmorphone INJ1* 1 MG/ML SYRINGE IV PRN; +Insulin GLARGINE(*) 1 UNITS UNIT SUBCUT SCH; +Labetalol IV* 5 MG/ML 20 ML VIAL IV PUSH ONE; +Labetalol IV* 5 MG/ML 20 ML VIAL ONE; -Lidocaine 2% PF * 5 ML VIAL ONE; +Magnesium Hydroxide LIQ* 30 ML UDC PO PRN; -Midazolam* 1 MG/ML 10 ML VIAL (10 MG) ONE; +Midazolam* 1 MG/ML 5 ML VIAL (5 MG) ONE; +Morphine INJ* 2 MG/ML 1 ML SYRINGE (TWO MG - NEW SYRINGE VERSION) IV PRN; +Pneumococcal *Vac Polyvalent 0.5 ML VIAL IM ONE; +ROPIVACAINE 5 MG/ML 30 ML BTL (0.5%) ONE; +Ropivacaine (OR use only) 2 MG/ML 10 ML ONE; +Tranexamic Acid 1,000 MG in NS 0.9% 50 ML* (outpatient use) IV SCH; +ceFAZolin 2 GM in NS PREMIX(*) 2 GM/100 ML BAG IVPB ONE; +celeCOXIB CAP* 200 MG ONE; +diPHENhydraMINE IV* 50 MG/ML 1 ml VIAL (BENADRYL) IV PRN; -fentaNYL* 50 MCG/ML 2 ML VIAL (100 MCG VIAL) IV PRN; +hydrALAZINE IV* 20 MG/ML VIAL IV SLOW PU PRN; -hydrALAZINE IV* 20 MG/ML VIAL ONE; +oxyCODONE TAB* 5 MG TAB ONE; +oxyCODONE/Acetamin 5/325 MG* TAB PO PRN
== END | DRG 470 ==
LOC: AA 05-15 08:25 → SSU 05-15 17:12
PROVIDERS: ADMIT Orthopaedic Surgery Adult Reconstructive Orthopaedic Surgery; ATTEND Orthopaedic Surgery Adult Reconstructive Orthopaedic Surgery
PROC: 0SRB04A Replacement of Left Hip Joint with Ceramic on Polyethylene Synthetic Substitute, Uncemented, Open Approach (ICD-10-PCS; principal; 2019-05-15 11:30)
DX: M16.12 Unilateral primary osteoarthritis, left hip (principal); E87.1 Hypo-osmolality and hyponatremia; E11.22 Type 2 diabetes mellitus with diabetic chronic kidney disease; E11.42 Type 2 diabetes mellitus with diabetic polyneuropathy; G89.29 Other chronic pain; M79.7 Fibromyalgia; K21.9 Gastro-esophageal reflux disease without esophagitis; M25.752 Osteophyte, left hip; I12.9 Hypertensive chronic kidney disease with stage 1 through stage 4 chronic kidney disease, or unspecified chronic kidney disease; M19.011 Primary osteoarthritis, right shoulder; M54.5 Low back pain; I35.0 Nonrheumatic aortic (valve) stenosis; R91.1 Solitary pulmonary nodule; E66.9 Obesity, unspecified; E78.1 Pure hyperglyceridemia; N18.3 Chronic kidney disease, stage 3 (moderate); M19.079 Primary osteoarthritis, unspecified ankle and foot; E78.5 Hyperlipidemia, unspecified; Z68.38 Body mass index [BMI] 38.0-38.9, adult; Z89.022 Acquired absence of left finger(s); Z83.3 Family history of diabetes mellitus; Z82.49 Family history of ischemic heart disease and other diseases of the circulatory system; Z82.61 Family history of arthritis; Z88.8 Allergy status to other drugs, medicaments and biological substances; Z72.0 Tobacco use; Z79.4 Long term (current) use of insulin; Z23 Encounter for immunization
CPT/HCPCS: 36415; 80048; 84300; 85014; 85018; 85049; 88304; 88311; A9270-GY; C1713; C1776; J0360; J0690; J1100; J2250; J2270; J2405; J2704; J2795; J3010; J3490

== ENCOUNTER 2019-09-11 21:08 | Emergency (ER) | payer MEDICARE, MEDICAID ==
--- NOTE | 2019-09-11 21:33 | ED ---
Altered Mental Status - HPI Summary HPI Summary: Patient is a 58 y/o M presenting to [facility] via EMS for unresponsiveness. Patient' s partner found the patient unresponsive and not breathing. EMS was called, patient was doused with cold water with no effect. EMS found the patient with pinpoint pupils. 8 mg Narcan was administered with good response. He is currently alert and oriented x3. Patient claims to be unsure how he became unresponsive. He states he takes Oxycodone BID and denies having taken additional medications today. He denies street drug usage as well. Home medications and allergies are reviewed. - History Of Current Complaint Stated Complaint: AMS PER EMS Time Seen by Provider: 09/11/19 21:19 Hx Obtained From: Patient Onset/Duration: Resolved Timing: Intermittent Character: Responsiveness Alleviating Factor(s): Other - narcan Associated Signs And Symptoms: Positive: Negative - Allergies/Home Medications Allergies/Adverse Reactions: Allergies Allergy/AdvReac Type Severity Reaction Status Date / Time acarbose [From Precose] AdvReac Unknown GI Upset Verified 05/10/19 16:33 metformin AdvReac Unknown GI Upset Verified 05/10/19 16:33 naproxen AdvReac Unknown GI Upset Verified 05/10/19 16:33 nicotine AdvReac Unknown Dizziness Verified 05/10/19 16:33 PMH/Surg Hx/FS Hx/Imm Hx Endocrine/Hematology History: Reports: Hx Diabetes Denies: Hx Bone Marrow Disease, Hx Sickle Cell Disease, Hx Anemia Cardiovascular History: Reports: Hx Hypercholesterolemia, Hx Hypertension - ON MEDICATION FOR Denies: Hx Angina, Hx Cardiomegaly, Hx Congestive Heart Failure, Hx Coronary Artery Disease, Hx Myocardial Infarction, Hx Pacemaker/ICD, Hx Peripheral Vascular Disease, Hx Rheumatic Fever, Hx Valvular Heart Disease, Other Cardiovascular Problems/Disorders Respiratory History: Reports: Hx Pulmonary Edema - 1 X PER PT APPROX.01/2019. NO FURTHER EPISODES. Denies: Hx Asthma, Hx Chronic Obstructive Pulmonary Disease (COPD), Hx Pulmonary Embolism, Hx Sleep Apnea, Other Respiratory Problems/Disorders GI History: Reports: Hx Gastroesophageal Reflux Disease - ON MEDICATION FOR, Hx Hiatal Hernia Denies: Other GI Disorders History: Denies: Other Problems/Disorders Musculoskeletal History: Reports: Hx Arthritis - "ALL OVER" Denies: Hx Bursitis, Hx Tendonitis, Other Musculoskeletal History Sensory History: Reports: Hx Contacts or Glasses - GLASSES Denies: Hx Cataracts, Hx Glaucoma, Hx Hearing Aid Opthamlomology History: Reports: Hx Contacts or Glasses - GLASSES Denies: Hx Cataracts, Hx Glaucoma Neurological History: Reports: Hx Dementia Denies: Other Neuro Impairments/Disorders - Cancer History Hx Chemotherapy: No - Surgical History Surgery Procedure, Year, and Place: HERNIA REPAIR. RIGHT TOTAL REPLACEMENT-7 YEARS AGO. finger Hx Anesthesia Reactions: No - Immunization History Date of Tetanus Vaccine: utd Date of Influenza Vaccine: spring 2017 - Family History Known Family History: Positive: Cardiac Disease - Social History Alcohol Use: Rare Hx Substance Use: Yes Substance Use Type: Reports: Heroin Substance Use Comment - Amount & Last Used: 1 time thing Hx Tobacco Use: Yes Smoking Status (MU): Former Smoker Type: Cigarettes Amount Used/How Often: UP TO 6 CIGARETTES PER DAY-X 30 YEARS Have You Smoked in the Last Year: Yes Review of Systems Respiratory: Other - not breathing, since resolved Neurological: Other - unresponsiveness, since resolved All Other Systems Reviewed And Are Negative: Yes Physical Exam - Summary Physical Exam Summary: Appearance: Well-appearing, Well-nourished, lying in bed comfortably Skin: Warm, dry, no obvious rash Eyes: sclera anicteric, no conjunctival pallor ENT: mucous membranes moist, pharynx appears normal Neck: Supple, nontender Respiratory: Clear to auscultation, no signs of respiratory distress Cardiovascular: Normal S1, S2. No murmurs. Normal distal pulses in tibial and radial bilaterally. Abdomen: Soft, nontender, normal active bowel sounds present Musculoskeletal: Normal, Strength/ROM Intact Neurological: A&Ox3, awake and alert, mentation is normal, speech is fluent and appropriate Psychiatric: affect is normal, does not appear anxious or depressed Triage Information Reviewed: Yes Vital Signs Reviewed: Yes Procedures - Sedation Patient Received Moderate/Deep Sedation with Procedure: No Diagnostics - Laboratory Result Diagrams: 09/11/19 21:14 09/11/19 21:14 Lab Statement: Any lab studies that have been ordered have been reviewed, and results considered in the medical decision making process. Re-Evaluation - Re-Evaluation First Eval Re-Evaluation Time: 21:57 Comment: Patient adamant and insistent on discharge. He was discharged to home. Opioid safety was discussed. PCP follow up was given. Altered Mental Statu Course/Dx - Course Course Of Treatment: Patient is a 58 y/o M presenting to [facility] via EMS for unresponsiveness. Patient's partner found the patient unresponsive and not breathing. EMS was called, patient was doused with cold water with no effect. EMS found the patient with pinpoint pupils. 8 mg Narcan was administered with good response. He is currently alert and oriented x3. Patient claims to be unsure how he became unresponsive. He states he takes Oxycodone, 2 pills a daily , and denies having taken more today. He denies street drug usage as well. Physical exam is unremarkable. Bloodwork was obtained, abnormal values include Hgb 12.7, Hct 38, MCV 77, RDW 16, creatinine 1.75, glucose 272. During his stay , the patient became adamant and insistent on discharge. He was felt to be competent and I did explain to him what I thought happened and my concerns about opioid safety. He was discharged to home. Opioid safety was discussed. PCP follow up was given. - Diagnoses Provider Diagnoses: Overdose Discharge ED - Sign-Out/Discharge Documenting (check all that apply): Patient Departure - discharge - Discharge Plan Condition: Stable Disposition: HOME Patient Education Materials: Opioid Safety (ED), Prescription Narcotic Overdose (ED) Referrals: Mary Mendez MD [Primary Care Provider] - As Soon As Possible Additional Instructions: Your presentation to EMS today was very typical of an inadvertent overdose of opioid medication; I suspect you took more than you have been prescribed today. These are very powerful medications and cannot be taken in excess, or the results can be fatal. Please discuss this with your doctor or provider. - Billing Disposition and Condition Condition: STABLE Disposition: Home - Attestation Statements Document Initiated by Camelia: Yes Documenting Scribe: BREANN PEARCE Provider For Whom Camelia is Documenting (Include Credential): RENAY ARIAS MD Scribe Attestation: I, BREANN PEARCE, jased for RENAY ARIAS MD on 09/13/19 at 0455. Scribe Documentation Reviewed: Yes Provider Attestation: The documentation as recorded by the BREANN del valle accurately reflects the service I personally performed and the decisions made by me, RENAY ARIAS MD Status of Scribe Document: Viewed
[2019-09-11 21:36] LABS: ABS Eosinophils 0.2 10^3/ul (0-0.6); ABS Lymphocytes 1.9 10^3/ul (1.0-4.8); ABS Monocytes 0.7 10^3/ul (0-0.8); ABS Neutrophils 5.9 10^3/ul (1.5-7.7); Eosinophil % 2.1 %; Hematocrit 38 % (42-52); Hemoglobin 12.7 g/dL (14.0-18.0); Lymphocyte % 21.4 %; Mean Corpuscular HGB Conc 34 g/dL (31-36); Mean Corpuscular Hemoglobin 26 pg (27-31); Mean Corpuscular Volume 77 fL (80-94); Mean Platelet Volume 8.1 fL (7.4-10.4); Nucleated Red Blood Cells % 0.1; Platelet Count 217 10^3/uL (150-450); Red Blood Count 4.91 10^6 /uL (4.18-5.48); Red Cell Distribution Width 16 % (10-15); White Blood Count 8.7 10^3/uL (3.5-10.8)
[2019-09-11 21:52] LABS: Albumin 3.7 g/dL (3.2-5.2); Calcium 9.6 mg/dL (8.6-10.3); EGFR African American 48.7 (>60); EGFR Non-African American 40.2 (>60); Globulin 3.8 g/dL (2-4); Potassium 4.4 mmol/L (3.5-5.0); Total Bilirubin 0.7 mg/dL (0.2-1.0); Total Protein 7.5 g/dL (6.4-8.9)
[2019-09-11 22:13] VITALS: BP 157/98
== END 2019-09-11 22:11 | disposition home or self-care (01) ==
LOC: ED 21:08
DX: T65.91XA Toxic effect of unspecified substance, accidental (unintentional), initial encounter (principal); Y92.9 Unspecified place or not applicable; E78.00 Pure hypercholesterolemia, unspecified; I10 Essential (primary) hypertension; E11.9 Type 2 diabetes mellitus without complications; Z86.711 Personal history of pulmonary embolism; Z87.891 Personal history of nicotine dependence
CPT/HCPCS: 36415; 80053; 85025; 99283

== ENCOUNTER 2021-02-09 17:54 | Inpatient (IN) ==
[2021-02-09] MEDS ORDERED: Naloxone 0.4 mg VIAL 0.4 mg/ml 1 ml VIAL ONE ×3 (18:01→18:19)
[2021-02-09] MEDS ORDERED: Naloxone 0.4 mg VIAL 0.4 mg/ml 1 ml VIAL IV PUSH ONE ×3 (18:11→19:20)
[2021-02-09 18:26] LABS: ABS Basophils 0.1 10^3/ul (0-0.2); ABS Eosinophils 0.2 10^3/ul (0-0.6); ABS Lymphocytes 1.9 10^3/ul (1.0-4.8); ABS Monocytes 0.7 10^3/ul (0-0.8); ABS Neutrophils 8.1 10^3/ul (1.5-7.7); Eosinophil % 1.5 %; Hematocrit 35 % (42-52); Hemoglobin 12.1 g/dL (14.0-18.0); Lymphocyte % 17.6 %; Mean Corpuscular HGB Conc 34 g/dL (31-36); Mean Corpuscular Hemoglobin 27 pg (27-31); Mean Corpuscular Volume 79 fL (80-94); Mean Platelet Volume 8.3 fL (7.4-10.4); Platelet Count 253 10^3/uL (150-450); Red Blood Count 4.47 10^6 /uL (4.18-5.48); Red Cell Distribution Width 15 % (10-15)
[2021-02-09] MEDS: NS 0.9% 1000 ml BAG 1,000 ML IV SCH ×2 (18:28→18:38)
[2021-02-09 18:36] LABS: Activated Partial Thrombo Time 29.4 seconds (26.0-38.0); INR 0.95 (0.82-1.09)
[2021-02-09] MEDS ORDERED: D5NS 0.9% 1000 ml BAG 1,000 ML IV ONE (18:41)
[2021-02-09 18:46] LABS: ALT 12 U/L (7-52); AST 13 U/L (13-39); Albumin 3.8 g/dL (3.2-5.2); Albumin/Globulin Ratio 1.2 (1-3); Alkaline Phosphatase 52 U/L (34-104); Anion Gap 5 mmol/L (2-11); Blood Urea Nitrogen 33 mg/dL (6-24); C Reactive Protein 62.91 mg/L (<8.01); CO2 Carbon Dioxide 25 mmol/L (22-32); Calcium 8.3 mg/dL (8.6-10.3); Chloride 103 mmol/L (101-111); EGFR African American 34.6 (>60); EGFR Non-African American 28.6 (>60); Globulin 3.3 g/dL (2-4); Glucose 54 mg/dL (70-100); Potassium 3.8 mmol/L (3.5-5.0); Sodium 133 mmol/L (135-145); Total Protein 7.1 g/dL (6.4-8.9)
[2021-02-09] MEDS ORDERED: Dextrose 50% Syringe 50 ml 25 GM/50 ML SYRINGE IV PUSH ONE (18:54)
[2021-02-09 19:28] LABS: Troponin I 0.01 ng/mL (<0.03)
[2021-02-09] MEDS ORDERED: Naloxone 4 mg VIAL 0.4 MG/ML 10 ml VIAL (4 mg) ONE (19:30)
[2021-02-09 19:34] LABS: Alcohol, S < 10 mg/dL (<10)
[2021-02-10] MEDS ORDERED: Albuterol HFA INHALER 8 gm MDI INH PRN (00:56)
[2021-02-10 00:59] LABS: Magnesium 2.3 mg/dL (1.9-2.7)
[2021-02-10 02:26] LABS: Urine Appearance Clear; Urine Bilirubin Negative (Negative); Urine Blood Negative (Negative); Urine Color Yellow; Urine Glucose 1+(50 mg/dL) (Negative); Urine Ketones Negative (Negative); Urine Nitrite Negative (Negative); Urine Protein 1+(30 mg/dL) (Negative); Urine Urobilinogen Negative (Negative)
[2021-02-10 02:30] LABS: Urine Bacteria Absent (Absent); Urine Red Blood Cell Trace(0-2/hpf) (Absent); Urine Squamous Epithelial Cell Present (Absent); Urine White Blood Cell Trace(0-5/hpf) (Absent)
[2021-02-10 02:37] LABS: Urine Benzodiazepine Screen None Detected (None Detect); Urine Cannabinoids Screen None Detected (None Detect); Urine Opiates Screen None Detected (None Detect)
[2021-02-10 04:13] LABS: ABS Eosinophils 0.3 10^3/ul (0-0.6); ABS Lymphocytes 2.5 10^3/ul (1.0-4.8); ABS Monocytes 0.7 10^3/ul (0-0.8); ABS Neutrophils 4.3 10^3/ul (1.5-7.7); Eosinophil % 3.5 %; Hematocrit 36 % (42-52); Hemoglobin 11.7 g/dL (14.0-18.0); Lymphocyte % 31.9 %; Mean Corpuscular HGB Conc 33 g/dL (31-36); Mean Corpuscular Hemoglobin 26 pg (27-31); Mean Corpuscular Volume 81 fL (80-94); Mean Platelet Volume 8.4 fL (7.4-10.4); Nucleated Red Blood Cells % 0.2; Platelet Count 217 10^3/uL (150-450); Red Blood Count 4.43 10^6 /uL (4.18-5.48); Red Cell Distribution Width 15 % (10-15); White Blood Count 7.8 10^3/uL (3.5-10.8)
[2021-02-10] MEDS: Heparin 5000 UNITS/ML 1 mL VIAL SUBCUT SCH ×3 (04:13→21:39)
[2021-02-10 04:29] LABS: Calcium 7.6 mg/dL (8.6-10.3); EGFR African American 47.1 (>60); EGFR Non-African American 38.9 (>60); Magnesium 2.3 mg/dL (1.9-2.7); Phosphorus 3.5 mg/dL (2.5-5.0); Potassium 4.2 mmol/L (3.5-5.0)
[2021-02-10 05:02] LABS: Ferritin 106.5 ng/mL (24-336)
[2021-02-10] MEDS ORDERED: Dextrose 50% Syringe 50 ml 25 GM/50 ML SYRINGE IV PUSH PRN (09:21)
[2021-02-10] MEDS ORDERED: BUPRENORPHINE TRANSDERM SCH (10:00)
[2021-02-10] MEDS: Insulin NPH 100 units/ml SUBCUT SCH ×2 (12:08→16:25)
[2021-02-10] MEDS: Buprenorph Patch Check Q Shift 1 NOTE MISC FOLLOW UP SCH (19:21)
[2021-02-11] MEDS: Heparin 5000 UNITS/ML 1 mL VIAL SUBCUT SCH (04:07)
[2021-02-11] MEDS: Buprenorph Patch Check Q Shift 1 NOTE MISC FOLLOW UP SCH (06:52)
[2021-02-11 08:33] LABS: Anion Gap 5 mmol/L (2-11); Blood Urea Nitrogen 21 mg/dL (6-24); C Reactive Protein 14.07 mg/L (<8.01); CO2 Carbon Dioxide 22 mmol/L (22-32); Calcium 8.2 mg/dL (8.6-10.3); Chloride 110 mmol/L (101-111); EGFR African American 86.2 (>60); EGFR Non-African American 71.3 (>60); Glucose 156 mg/dL (70-100); Potassium 4.5 mmol/L (3.5-5.0); Sodium 137 mmol/L (135-145)
[2021-02-11 08:43] LABS: % Iron Saturation 26 % (15-55); Iron 79 ug/dL (50-212); Total Iron Binding Capacity 300 mcg/dL (250-450); Transferrin 214 mg/dL (203-362); Unsaturated Iron Binding < 285 ug/dL
[2021-02-11] MEDS: Insulin NPH 100 units/ml SUBCUT SCH (09:10)
[2021-02-11] MEDS ORDERED: Calcium Carb (TUMS) 500 mg CHEW TAB PO PRN (11:37)
[2021-02-11 12:00] VITALS: BP 165/89
== END 2021-02-11 13:15 | disposition home or self-care (01) | DRG 637 ==
LOC: ED 17:54 → ICU 22:02 → MEDTELE 02-10 17:00
PROVIDERS: ADMIT Internal Medicine; ATTEND Internal Medicine

== ENCOUNTER 2023-11-04 11:35 | Observation (INO) ==
[~2023-11-04 11:35] MED LIST changes: -Acetaminophen IV 1GM/100ML * 1,000 MG/100 ML VIAL IVPB ONE; -Acetaminophen IV 1GM/100ML * 100 ML ONE; -Acetaminophen TAB* 325 MG PO PRN; -Bisacodyl SUPP* 10 MG SUPP PR PRN; +Buffered Lidocaine 1% SYRIN 1 ml INTRADERM ONE; -Buffered Lidocaine 1% SYRIN* 1 ML/SYRINGE INTRADERM ONE; -Bupivacaine 0.5% SDV PF* 30ML VIAL ONE; -Cyclobenzaprine TAB* 10 MG PO PRN; -Dexamethasone IV* 4 MG/ML 1 ML (4 MG) IV SLOW PU ONE; -Dexamethasone IV* 4 MG/ML 1 ML (4 MG) ONE; -Dextrose 50% Syringe 50 ML* 25 GM/50 ML SYRINGE IV PUSH PRN; -Dextrose 50% VIAL 50 ml IV PUSH PRN; -DiMENhydriNATE IV* 50 MG/ML VIAL IV PUSH PRN; -Famotidine IV* 10 MG/ML 2 ML (20 mg) IV ONE; -Famotidine IV* 10 MG/ML 2 ML (20 mg) ONE; -Glycopyrrolate IV* 0.2 MG/ML 1 ML VIAL ONE; -HYDROmorphone INJ1* 1 MG/ML SYRINGE IV PRN; -Insulin GLARGINE(*) 1 UNITS UNIT SUBCUT SCH; -KETAMINE HCL* 50 MG/ML 10 ML VIAL ONE; -Labetalol IV* 5 MG/ML 20 ML VIAL IV PUSH ONE; -Labetalol IV* 5 MG/ML 20 ML VIAL ONE; -Lactated Ringers 1000 ML Bag* 1,000 ML IV SCH; +Lactated Ringers 1000 ml BAG 1,000 ML IV SCH; -Magnesium Hydroxide LIQ* 30 ML UDC PO PRN; -Midazolam* 1 MG/ML 5 ML VIAL (5 MG) ONE; -Morphine INJ* 2 MG/ML 1 ML SYRINGE (TWO MG - NEW SYRINGE VERSION) IV PRN; -Naloxone* 0.4 MG/ML 1 ML VIAL IV PRN; -Ondansetron INJ* 2 MG/ML VIAL IV PRN; -Ondansetron INJ* 2 MG/ML VIAL ONE; -Pneumococcal *Vac Polyvalent 0.5 ML VIAL IM ONE; -Propofol* 10 MG/ML 20 ML BTL ONE; -ROPIVACAINE 5 MG/ML 30 ML BTL (0.5%) ONE; -Ropivacaine (OR use only) 2 MG/ML 10 ML ONE; -Tranexamic Acid 1,000 MG in NS 0.9% 50 ML* (outpatient use) IV SCH; -ceFAZolin 2 GM in NS PREMIX(*) 2 GM/100 ML BAG IVPB ONE; -celeCOXIB CAP* 200 MG ONE; -diPHENhydraMINE IV* 50 MG/ML 1 ml VIAL (BENADRYL) IV PRN; -fentaNYL* 50 MCG/ML 2 ML VIAL (100 MCG VIAL) ONE; -hydrALAZINE IV* 20 MG/ML VIAL IV SLOW PU PRN; -oxyCODONE TAB* 5 MG TAB ONE; -oxyCODONE/Acetamin 5/325 MG* TAB PO PRN
[2023-11-04 12:26] LABS: Rapid COVID-19 Molecular Undetected (Undetected)
[2023-11-04] MEDS ORDERED: ceFAZolin 2 GM in NS PREMIX 2 GM/100 ML BAG IVPB ONE (12:26)
[2023-11-04] MEDS ORDERED: Lidocaine 2% PF 5 ML VIAL ONE (12:55)
[2023-11-04] MEDS ORDERED: ROPIVACAINE 5 MG/ML 30 ML BTL (0.5%) ONE ×2 (13:37→14:11)
[2023-11-04] MEDS ORDERED: fentaNYL 100 mcg/2 ml 50 MCG/ML VIAL ONE (13:37)
[2023-11-04] MEDS ORDERED: Midazolam 5 mg/5 ml VIAL 1 mg/ml 5 ml VIAL (5 mg) ONE (13:37)
[2023-11-04] MEDS ORDERED: Midazolam 2 mg/2 ml VIAL 1 mg/ml 2 ml VIAL (2 mg) ONE (14:24)
[2023-11-04] MEDS ORDERED: Propofol 10 MG/ML 20 ML BTL ONE ×2 (14:24→14:58)
[2023-11-04] MEDS ORDERED: Succinylcholine 200 mg VIAL 20 mg/ml 10 ml VIAL (200 mg) ONE (14:24)
[2023-11-04] MEDS ORDERED: fentaNYL 250 mcg/5 ml 50 MCG/ML 5 ml VIAL (250 MCG) ONE (14:24)
[2023-11-04] MEDS ORDERED: Rocuronium 50 mg VIAL 10 mg/ml 5 ml VIAL (50 mg) ONE (14:24)
[2023-11-04] MEDS ORDERED: Naloxone 0.4 mg VIAL 0.4 mg/ml 1 ml VIAL IV PRN (14:45)
[2023-11-04] MEDS ORDERED: HYDROmorphone 1 MG/1 ML SYRINGE IV PRN (14:45)
[2023-11-04] MEDS ORDERED: fentaNYL 100 mcg/2 ml 50 MCG/ML VIAL IV PRN (14:45)
[2023-11-04] MEDS ORDERED: HYDROmorphone 0.5 MG/0.5 ML SYRINGE ONE (15:22)
[2023-11-04] MEDS ORDERED: Famotidine IV 10 MG/ML 2 ml VIAL (20 mg) ONE (15:31)
[2023-11-04] MEDS ORDERED: Morphine 2 MG/ML SYRINGE IV PRN (15:41)
[2023-11-04] MEDS ORDERED: Magnesium Hydroxide LIQ 30 ML UDC PO PRN (15:41)
[2023-11-04] MEDS ORDERED: Ondansetron ODT 4 mg TAB 4 MG TAB PO PRN (15:41)
[2023-11-04] MEDS ORDERED: Lactulose 30 ml UDC PO PRN (15:41)
[2023-11-04] MEDS ORDERED: Ondansetron 4 mg VIAL 2 MG/ML 2 ml VIAL IV PRN (15:41)
[2023-11-04] MEDS ORDERED: Ondansetron 4 mg VIAL 2 MG/ML 2 ml VIAL ONE ×2 (16:24)
[2023-11-04] MEDS ORDERED: Acetaminophen IV 1 GM/100ML 1,000 MG/100 ML BAG IV ONE (16:28)
[2023-11-04] MEDS ORDERED: Lidocaine PATCH 5% PATCH TRANSDERM PRN (18:25)
[2023-11-04] MEDS ORDERED: Dextrose 50% Syringe 50 ml 25 GM/50 ML SYRINGE IV PUSH PRN (18:29)
[2023-11-04] MEDS ORDERED: Lidocaine 4% CREAM (LMX) 5 GM TUBE TOPICAL PRN (19:36)
[2023-11-04] MEDS: Lactated Ringers 1000 ml BAG 1,000 ML IV SCH (20:13)
[2023-11-04] MEDS: Magnesium Hydroxide LIQ 30 ML UDC PO SCH (20:15)
[2023-11-04] MEDS ORDERED: [UNRECOGNIZED DRUG - OTHER] SUBCUT SCH (21:00)
[2023-11-04] MEDS ORDERED: INSULIN NPH AND REGULAR HUMAN SUBCUT SCH (21:00)
[2023-11-04] MEDS: Benzocaine/Menthol LOZ PO PRN (21:45)
[2023-11-04] MEDS: ceFAZolin 1 GM ADVAN 1 GM in NS 0.9% 50 ML 50 ML IVPB SCH (23:30)
[2023-11-05] MEDS: Morphine 2 MG/ML SYRINGE IV PRN ×2 (03:18→20:52)
[2023-11-05 06:15] LABS: Platelet Count 219 10^3/uL (150-450)
[2023-11-05] MEDS: Lactated Ringers 1000 ml BAG 1,000 ML IV SCH (06:15)
[2023-11-05 06:32] LABS: Calcium 7.6 mg/dL (8.6-10.3); Creatinine, Serum 1.73 mg/dL (0.67-1.17); Potassium 4.2 mmol/L (3.5-5.0); eGFR CKD-EPI 44.1 (>60)
[2023-11-05 06:55] LABS: Hematocrit 33.2 % (38-53); Hemoglobin 11.1 g/dL (13.2-16.3); Mean Platelet Volume 8.3 fL (7.5-11.2)
[2023-11-05] MEDS: Magnesium Hydroxide LIQ 30 ML UDC PO SCH ×2 (08:28→20:50)
[2023-11-05] MEDS: DULoxetine DR 20 mg CAP PO SCH (08:29)
[2023-11-05] MEDS: Vitamin THERAPEUTIC TAB PO SCH (08:29)
[2023-11-05] MEDS: Empagliflozin 25 MG TAB PO SCH (08:29)
[2023-11-05] MEDS ORDERED: Insulin ISOPH/REG 70/30 SUBCUT SCH ×2 (09:00→17:00)
[2023-11-05] MEDS: ceFAZolin 1 GM ADVAN 1 GM in NS 0.9% 50 ML 50 ML IVPB SCH ×2 (09:35→16:08)
[2023-11-05] MEDS: Morphine ER 15 mg TAB ** extended release PO SCH ×2 (10:09→22:10)
[2023-11-06] MEDS: Benzocaine/Menthol LOZ PO PRN (01:10)
[2023-11-06] MEDS ORDERED: Insulin ISOPH/REG 70/30 SUBCUT SCH (07:00)
[2023-11-06 07:59] LABS: Platelet Count 203 10^3/uL (150-450)
[2023-11-06 08:03] LABS: Hematocrit 30.8 % (38-53); Hemoglobin 10.4 g/dL (13.2-16.3)
[2023-11-06 08:32] LABS: Calcium 7.5 mg/dL (8.6-10.3); Creatinine, Serum 1.66 mg/dL (0.67-1.17); Potassium 4.6 mmol/L (3.5-5.0); eGFR CKD-EPI 46.3 (>60)
[2023-11-06] MEDS: Empagliflozin 25 MG TAB PO SCH (09:56)
[2023-11-06] MEDS: DULoxetine DR 20 mg CAP PO SCH (09:57)
[2023-11-06] MEDS: Vitamin THERAPEUTIC TAB PO SCH (09:58)
[2023-11-06] MEDS: Morphine ER 15 mg TAB ** extended release PO SCH (09:58)
[2023-11-06] MEDS: Magnesium Hydroxide LIQ 30 ML UDC PO SCH (09:59)
[2023-11-06 10:19] VITALS: BP 138/71
== END 2023-11-06 14:35 | disposition home or self-care (01) ==
LOC: OR 11:35 → SSU 11:35
PROVIDERS: ADMIT Orthopaedic Surgery Adult Reconstructive Orthopaedic Surgery; ATTEND Orthopaedic Surgery Adult Reconstructive Orthopaedic Surgery

== ENCOUNTER 2024-06-06 20:06 | Inpatient (IN) ==
[2024-06-06 20:42] LABS: ABS Basophils 0.1 10^3/uL (0.0-0.1); ABS Eosinophils 0.6 10^3/uL (0.0-0.5); ABS Lymphocytes 2.4 10^3/uL (1.0-4.8); ABS Monocytes 1.2 10^3/uL (0.0-1.1); ABS Neutrophils 9.6 10^3/uL (1.5-7.6); Hematocrit 38.4 % (38-53); Hemoglobin 12.8 g/dL (13.2-16.3); Lymphocyte % 17.3 %; Mean Corpuscular Hemoglobin 25.2 pg (27-33); Mean Corpuscular Hgb Conc 33.5 g/dL (31-36); Mean Corpuscular Volume 75.3 fL (80-97); Mean Platelet Volume 7.7 fL (7.5-11.2); Platelet Count 255 10^3/uL (150-450); Red Cell Distribution Width 17.3 % (12-17); White Blood Count 13.9 10^3/uL (3.6-10.2)
[2024-06-06 20:49] LABS: INR 1.06 (0.85-1.14)
[2024-06-06] MEDS: Morphine 4 MG/ML VIAL (1 ml) IV ONE ×2 (20:56→23:49)
[2024-06-06 21:09] LABS: Venous Bicarbonate HCO3 22.9 mmol/L (24-28)
[2024-06-06 21:20] LABS: Albumin 3.6 g/dL (3.2-5.2); Albumin/Globulin Ratio 0.9 (1-3); Creatinine, Serum 1.64 mg/dL (0.67-1.17); Globulin 3.8 g/dL (2-4); Potassium 4.3 mmol/L (3.5-5.0); Total Bilirubin 0.7 mg/dL (0.2-1.0); Total Protein 7.4 g/dL (6.4-8.9); eGFR CKD-EPI 46.7 (>60)
[2024-06-06 22:08] LABS: High Sensitivity Troponin 1 Hr 7 pg/mL (<20)
[2024-06-06] MEDS: Iodixanol (CONTRAST) 320 MG/ML 100 ML SDV IV ONE (23:09)
[2024-06-07 03:23] LABS: HDL Cholesterol 46.7 mg/dL; Magnesium 1.9 mg/dL (1.9-2.7)
[2024-06-07 04:10] LABS: C Reactive Protein 147.62 mg/L (<8.01)
[2024-06-07] MEDS ORDERED: Lactated Ringers 1000 ml BAG 1,000 ML IV SCH (06:00)
[2024-06-07] MEDS: Lactated Ringers 1000 ml BAG 1,000 ML IV SCH (06:13)
[2024-06-07] MEDS: Morphine 2 MG/ML SYRINGE IV PRN ×2 (06:13→18:47)
[2024-06-07 06:29] LABS: ABS Eosinophils 0.7 10^3/uL (0.0-0.5); ABS Lymphocytes 2.2 10^3/uL (1.0-4.8); ABS Monocytes 1.1 10^3/uL (0.0-1.1); ABS Neutrophils 8.9 10^3/uL (1.5-7.6); ABS Nucleated RBC 0.01 10^3/ul; Eosinophil % 5.5 %; Hematocrit 37.6 % (38-53); Hemoglobin 12.3 g/dL (13.2-16.3); Lymphocyte % 16.7 %; Mean Corpuscular Hemoglobin 24.7 pg (27-33); Mean Corpuscular Hgb Conc 32.7 g/dL (31-36); Mean Corpuscular Volume 75.5 fL (80-97); Mean Platelet Volume 7.7 fL (7.5-11.2); Nucleated Red Blood Cells % 0.1 %/100WBC (0.0-0.8); Platelet Count 246 10^3/uL (150-450); Red Blood Count 4.98 10^6/uL (4.06-5.63); Red Cell Distribution Width 17.2 % (12-17); White Blood Count 12.9 10^3/uL (3.6-10.2)
[2024-06-07 07:19] LABS: ALT 14 U/L (7-52); Albumin 3.2 g/dL (3.2-5.2); Albumin/Globulin Ratio 0.9 (1-3); Alkaline Phosphatase 53 U/L (35-149); Anion Gap 9 mmol/L (2-16); Blood Urea Nitrogen 20 mg/dL (6-24); CO2 Carbon Dioxide 25 mmol/L (22-32); Calcium 7.5 mg/dL (8.6-10.3); Chloride 104 mmol/L (101-111); Globulin 3.6 g/dL (2-4); Glucose 76 mg/dL (70-100); Sodium 138 mmol/L (135-145); Total Protein 6.8 g/dL (6.4-8.9); eGFR CKD-EPI 56.5 (>60)
[2024-06-07] MEDS: Dextrose 50% Syringe 50 ml 25 GM/50 ML SYRINGE IV PUSH PRN (08:16)
[2024-06-07] MEDS: D5W 1/2 NS 1000 ml BAG 1,000 ML IV SCH (08:19)
[2024-06-07] MEDS: Empagliflozin 25 MG TAB PO SCH (08:29)
[2024-06-07] MEDS: DULoxetine DR 20 mg CAP PO SCH (08:29)
[2024-06-07] MEDS: Nicotine PATCH 14 MG/24 HR PATCH TRANSDERM SCH (08:31)
[2024-06-07 09:02] LABS: Potassium Redraw 4.3 mmol/L (3.5-5.0)
[2024-06-07] MEDS: cefTRIAXone 1 gm/50 mL D5W 1 GM/50 ML BAG IV SCH (10:41)
[2024-06-07] MEDS: Azithromycin 500 mg/250 ml NS 500 MG/250 ML BAG IVPB SCH (11:52)
[2024-06-07 16:12] LABS: Body Fluid Total Nucleated 14083 /mcL
[2024-06-07 16:15] LABS: Body Fluid Appearance Cloudy; Body Fluid Color Amber; Body Fluid Source Pleural Fluid
[2024-06-07 16:44] LABS: Body Fluid Mono 1 %; Body Fluid Total Cells Counted 200
[2024-06-08 09:04] LABS: Calcium 7.7 mg/dL (8.6-10.3); Creatinine, Serum 1.29 mg/dL (0.67-1.17); Potassium 4.5 mmol/L (3.5-5.0); eGFR CKD-EPI 62.3 (>60)
[2024-06-08] MEDS: Polyethylene Glycol 3350 17 GM PACKET PO PRN (09:55)
[2024-06-08] MEDS: Polyethylene Glycol 3350 17 GM PACKET PO SCH (10:02)
[2024-06-08] MEDS: metroNIDAZOLE IV 500 MG/100ML 500 MG/100 ML BAG IVPB SCH (11:12)
[2024-06-08] MEDS: Furosemide 20 mg/2 ml IV VIAL IV ONE ×2 (12:19→15:29)
[2024-06-08] MEDS: Sulfur Hexaflouride MICROSPHR 25 MG VIAL IV PRN (16:22)
[2024-06-08] MEDS: HYDROcodone/Acetamin 10/325 TAB (NF) PO PRN (17:22)
[2024-06-09] MEDS: Senna TAB 8.6 mg TAB PO PRN (01:35)
[2024-06-09 06:43] LABS: Albumin 2.9 g/dL (3.2-5.2); Albumin/Globulin Ratio 0.8 (1-3); Calcium 7.7 mg/dL (8.6-10.3); Creatinine, Serum 1.51 mg/dL (0.67-1.17); Globulin 3.6 g/dL (2-4); Phosphorus 4.2 mg/dL (2.5-5.0); Potassium 4.5 mmol/L (3.5-5.0); Total Bilirubin 0.6 mg/dL (0.2-1.0); Total Protein 6.5 g/dL (6.4-8.9); eGFR CKD-EPI 51.6 (>60)
[2024-06-09 08:11] LABS: ABS Eosinophils 0.5 10^3/uL (0.0-0.5); ABS Lymphocytes 1.3 10^3/uL (1.0-4.8); ABS Monocytes 1.2 10^3/uL (0.0-1.1); ABS Neutrophils 8.5 10^3/uL (1.5-7.6); Corrected Retic Count 0.7 % (0.5-1.5); Eosinophil % 4.1 %; Hematocrit 38.7 % (38-53); Hematocrit for Retic CNT 38.7 % (38-53); Hemoglobin 12.8 g/dL (13.2-16.3); Immature Retic Fraction 0.41; Mean Corpuscular Hemoglobin 25.4 pg (27-33); Mean Platelet Volume 7.6 fL (7.5-11.2); Platelet Count 206 10^3/uL (150-450); RBC Retic Count 5.03 10^6/ul (4.06-5.63); Red Blood Count 5.03 10^6/uL (4.06-5.63); Red Cell Distribution Width 17.1 % (12-17); White Blood Count 11.5 10^3/uL (3.6-10.2)
[2024-06-09] MEDS: Furosemide 40 mg/4 ml IV VIAL IV SCH (09:09)
[2024-06-09] MEDS: guaiFENesin 100 mg/5 ml LIQ unit dose cup PO PRN (09:24)
[2024-06-09] MEDS: oxyCODONE SR 10 mg TAB PO ONE (14:50)
[2024-06-09] MEDS: Docusate LIQ 100 MG/10 ML UDC PO SCH (14:50)
[2024-06-10 06:18] LABS: Hematocrit 36.9 % (38-53); Mean Corpuscular Hemoglobin 24.5 pg (27-33); Mean Corpuscular Hgb Conc 32.6 g/dL (31-36); Mean Corpuscular Volume 75.2 fL (80-97); Platelet Count 255 10^3/uL (150-450); Red Blood Count 4.91 10^6/uL (4.06-5.63); Red Cell Distribution Width 17.1 % (12-17); White Blood Count 13.9 10^3/uL (3.6-10.2)
[2024-06-10 06:27] LABS: ABS Eosinophils 0.3 10^3/uL (0.0-0.5); ABS Lymphocytes 1.2 10^3/uL (1.0-4.8); ABS Monocytes 1.7 10^3/uL (0.0-1.1); ABS Neutrophils 10.7 10^3/uL (1.5-7.6); Eosinophil % 2.4 %; Lymphocyte % 8.3 %
[2024-06-10 06:33] LABS: Calcium 8.2 mg/dL (8.6-10.3); Creatinine, Serum 1.64 mg/dL (0.67-1.17); Magnesium 2.3 mg/dL (1.9-2.7); Phosphorus 4.2 mg/dL (2.5-5.0); Potassium 4.6 mmol/L (3.5-5.0); eGFR CKD-EPI 46.7 (>60)
[2024-06-10] MEDS ORDERED: Magnesium Hydroxide LIQ 30 ML UDC PO PRN (08:25)
[2024-06-10] MEDS: Polyethylene Glycol 3350 BTL 238 GM BTL PO ONE (08:57)
[2024-06-10] MEDS: Magnesium Hydroxide LIQ 30 ML UDC PO SCH (10:09)
[2024-06-10 11:26] LABS: Lactate Dehydrogenase, BF 448 U/L
[2024-06-10 11:27] LABS: Fluid Type, Protein, Total PLEURAL FLUID; Glucose, BF 138 mg/dL; Total Protein, BF 4.8 g/dL
[2024-06-10] MEDS: Magnesium CITRATE LIQ 300 ML BTL PO ONE (14:35)
[2024-06-10] MEDS: Senna TAB 8.6 mg TAB PO SCH (20:15)
[2024-06-11] MEDS: Glycerin ADULT 2.4 gm SUPP PR ONE (03:00)
[2024-06-11 06:19] LABS: C Reactive Protein 270.62 mg/L (<8.01); Calcium 8.2 mg/dL (8.6-10.3); Creatinine, Serum 1.58 mg/dL (0.67-1.17); Magnesium 2.9 mg/dL (1.9-2.7); Potassium 4.8 mmol/L (3.5-5.0); eGFR CKD-EPI 48.8 (>60)
[2024-06-11 07:37] LABS: ABS Eosinophils 0.4 10^3/uL (0.0-0.5); ABS Monocytes 1.2 10^3/uL (0.0-1.1); ABS Neutrophils 9.3 10^3/uL (1.5-7.6); ABS Nucleated RBC 0.01 10^3/ul; Anisocytosis 1+; Eosinophil % 3.4 %; Hematocrit 35.1 % (38-53); Hemoglobin 11.8 g/dL (13.2-16.3); Lymphocyte % 8.5 %; Mean Corpuscular Hemoglobin 25.2 pg (27-33); Mean Corpuscular Hgb Conc 33.6 g/dL (31-36); Microcytosis 1+; Nucleated Red Blood Cells % 0.1 %/100WBC (0.0-0.8); Platelet Count 275 10^3/uL (150-450); Red Blood Count 4.69 10^6/uL (4.06-5.63)
[2024-06-11 13:10] LABS: Activated Partial Thrombo Time 32.6 seconds (26.0-38.0); INR 1.11 (0.85-1.14)
[2024-06-11] MEDS: Heparin 5000 UNITS/ML 1 mL VIAL SUBCUT SCH (20:59)
[2024-06-11] MEDS: Insulin GLARGINE 100 un/ml 10 ml VIAL SUBCUT SCH (21:10)
[2024-06-12 06:24] LABS: Hematocrit 35.2 % (38-53); Hemoglobin 11.4 g/dL (13.2-16.3); Mean Corpuscular Hemoglobin 24.2 pg (27-33); Mean Corpuscular Hgb Conc 32.5 g/dL (31-36); Mean Corpuscular Volume 74.6 fL (80-97); Mean Platelet Volume 7.9 fL (7.5-11.2); Platelet Count 301 10^3/uL (150-450); Red Blood Count 4.73 10^6/uL (4.06-5.63); Red Cell Distribution Width 17.1 % (12-17); White Blood Count 12.3 10^3/uL (3.6-10.2)
[2024-06-12 06:25] LABS: Creatinine, Serum 1.46 mg/dL (0.67-1.17); Magnesium 3.4 mg/dL (1.9-2.7); eGFR CKD-EPI 53.7 (>60)
[2024-06-12 11:26] LABS: Albumin, BF 2.6 g/dL; Fluid Type, Albumin PLEURAL FLUID
[2024-06-12 18:52] LABS: Body Fluid Total Nucleated 2454 /mcL
[2024-06-12 19:27] LABS: Body Fluid Mono 1 %; Body Fluid Source Pleural Fluid; Body Fluid Total Cells Counted 200
[2024-06-12 19:29] LABS: Body Fluid Appearance Cloudy; Body Fluid Color Amber
[2024-06-12] MEDS: HYDROcodone/Acetamin 10/325 TAB (NF) PO PRN (21:12)
[2024-06-13 06:53] LABS: ABS Eosinophils 0.4 10^3/uL (0.0-0.5); ABS Lymphocytes 1.5 10^3/uL (1.0-4.8); ABS Monocytes 1.1 10^3/uL (0.0-1.1); ABS Nucleated RBC 0.02 10^3/ul; Eosinophil % 4.3 %; Hematocrit 34.8 % (38-53); Hemoglobin 11.8 g/dL (13.2-16.3); Lymphocyte % 15.2 %; Mean Corpuscular Hemoglobin 25.2 pg (27-33); Mean Corpuscular Hgb Conc 33.8 g/dL (31-36); Mean Corpuscular Volume 74.6 fL (80-97); Mean Platelet Volume 7.4 fL (7.5-11.2); Nucleated Red Blood Cells % 0.2 %/100WBC (0.0-0.8); Platelet Count 327 10^3/uL (150-450); Red Blood Count 4.66 10^6/uL (4.06-5.63); White Blood Count 10.1 10^3/uL (3.6-10.2)
[2024-06-13 07:45] LABS: Calcium 7.7 mg/dL (8.6-10.3); Creatinine, Serum 1.49 mg/dL (0.67-1.17); Magnesium 3.6 mg/dL (1.9-2.7); Potassium 4.4 mmol/L (3.5-5.0); eGFR CKD-EPI 52.4 (>60)
[2024-06-13] MEDS ORDERED: Dextrose 50% Syringe 50 ml 25 GM/50 ML SYRINGE IV PUSH PRN (09:45)
[2024-06-13] MEDS: Insulin GLARGINE 100 un/ml 10 ml VIAL SUBCUT SCH (20:53)
[2024-06-14 06:01] LABS: Hematocrit 35.3 % (38-53); Hemoglobin 11.6 g/dL (13.2-16.3); Mean Corpuscular Hemoglobin 24.8 pg (27-33); Mean Corpuscular Hgb Conc 32.8 g/dL (31-36); Mean Corpuscular Volume 75.5 fL (80-97); Mean Platelet Volume 7.5 fL (7.5-11.2); Platelet Count 375 10^3/uL (150-450); Red Blood Count 4.67 10^6/uL (4.06-5.63); Red Cell Distribution Width 17.6 % (12-17); White Blood Count 10.2 10^3/uL (3.6-10.2)
[2024-06-14 06:37] LABS: Calcium 7.7 mg/dL (8.6-10.3); Creatinine, Serum 1.35 mg/dL (0.67-1.17); Magnesium 3.4 mg/dL (1.9-2.7)
[2024-06-14 15:28] LABS: Fluid Type, Protein, Total PLEURAL FLUID; Glucose, BF 22 mg/dL; Total Protein, BF 5.5 g/dL
[2024-06-14 15:56] LABS: Lactate Dehydrogenase, BF 1964 U/L
[2024-06-14] MEDS: Insulin GLARGINE 100 un/ml 10 ml VIAL SUBCUT SCH (20:10)
[2024-06-15 07:46] LABS: Calcium 7.6 mg/dL (8.6-10.3); Creatinine, Serum 1.17 mg/dL (0.67-1.17); Potassium 5.2 mmol/L (3.5-5.0)
[2024-06-15 08:50] LABS: Hematocrit 35.6 % (38-53); Mean Corpuscular Hemoglobin 24.9 pg (27-33); Mean Corpuscular Hgb Conc 33.6 g/dL (31-36); Mean Corpuscular Volume 74.1 fL (80-97); Mean Platelet Volume 7.5 fL (7.5-11.2); Platelet Count 405 10^3/uL (150-450); Red Cell Distribution Width 16.9 % (12-17); White Blood Count 8.8 10^3/uL (3.6-10.2)
[2024-06-15 09:00] LABS: ABS Basophils 0.1 10^3/uL (0.0-0.1); ABS Eosinophils 0.6 10^3/uL (0.0-0.5); ABS Lymphocytes 1.7 10^3/uL (1.0-4.8); ABS Monocytes 0.8 10^3/uL (0.0-1.1); ABS Neutrophils 5.5 10^3/uL (1.5-7.6); Eosinophil % 7.3 %; Lymphocyte % 19.8 %
[2024-06-15] MEDS: Furosemide 20 mg/2 ml IV VIAL IV SLOW PU ONE (12:21)
[2024-06-15 14:14] VITALS: BP 157/81
== END 2024-06-15 17:51 | disposition home or self-care (01) | DRG 871 ==
LOC: ED 20:06 → EDHOLD 06-07 02:46 → INTOOBSV 06-07 02:46 → SUATTDRO 06-07 02:46 → MEDTELE 06-07 07:39 → SUATTDRO 06-11 10:32 → MEDTELE 06-13 00:31
PROVIDERS: ADMIT Internal Medicine; ATTEND Hospitalist